=== PATIENT | female | born 1975 | race Caucasian/White ===

== ENCOUNTER 2018-11-19 21:53 | Inpatient (IN) | payer OTHER ==
[2018-11-19] MEDS ORDERED: HYDROmorphone 0.5 MG/0.5 ML Syringe IVPUSH ONE (22:37)
[2018-11-19] MEDS ORDERED: Ondansetron 4 MG/2 ML SDV IVPUSH ONE (22:37)
[2018-11-19] MEDS ORDERED: Sodium Chloride 0.9% 1,000 ML IV SCH (22:45)
--- NOTE | 2018-11-19 22:54 | EDM.PDOC ---
ED HPI GENERAL MEDICAL PROBLEM - General Chief Complaint: Abdominal Pain Stated Complaint: BOWELS Time Seen by Provider: 11/19/18 22:25 Source of Information: Reports: Patient, Family History Limitations: Reports: No Limitations - History of Present Illness INITIAL COMMENTS - FREE TEXT/NARRATIVE: 43-year-old female with a history of gastric bypass, several bowel obstructions the last one resulted in surgery last year. She had been doing well but over the past 3 days she's redeveloped symptoms similar to a bowel obstruction. She has less pain in the morning but as the day goes on she becomes bloated, increased pain and discomfort. Also persistent nausea, no fevers or chills. Onset: Gradual Duration: Day(s): (Over 3 days) Location: Reports: Abdomen abd pain Pain Score (Numeric/FACES): 6 - Related Data Allergies Allergy/AdvReac Type Severity Reaction Status Date / Time nitrofurantoin Allergy Intermediate Rash Verified 11/14/14 18:31 [From Macrobid] nitrofurantoin Allergy Intermediate Rash Verified 11/14/14 18:31 macrocrystalline [From Macrobid] celecoxib [From Celebrex] Allergy Facial Verified 11/19/18 22:19 Swelling gabapentin Allergy Facial Verified 11/19/18 22:19 Swelling Home Meds: Home Meds Calcium Citrate/Vitamin D3 [Calcium Citrate + D] 1 tab PO DAILY 10/29/13 [ History] Ferrous Sulfate [Iron] 325 mg PO DAILY 10/29/13 [History] Folic Acid 1 mg PO DAILY 10/29/13 [History] Multivitamin [Chewable Multi Vitamin] 1 tab.chew PO DAILY 10/29/13 [History] Magnesium Oxide 400 mg PO BID #60 tab 11/17/14 [Rx] Pantoprazole [ProTONIX] 40 mg PO BEDTIME #90 tab.cr 11/17/14 [Rx] Past Medical History HEENT History: Reports: None Gastrointestinal History: Reports: Bowel Obstruction, GERD 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: , 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 (See Below) 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: x2 - Infectious Disease History Infectious Disease History: Reports: Chicken Pox - Past Surgical History HEENT Surgical History: Reports: LASIK GI Surgical History: Reports: Bariatric Procedure, Cholecystectomy, EGD, Hernia Repair/Other, Lysis of Adhesions, Small Bowel Female Surgical History: Reports: Section, Tubal Ligation Social & Family History - Family History Family Medical History: Noncontributory - Tobacco Use Smoking Status *Q: Never Smoker - Caffeine Use Caffeine Use: Reports: Coffee - Recreational Drug Use Recreational Drug Use: No ED ROS GENERAL - Review of Systems Review Of Systems: See Below Constitutional: Denies: Fever, Chills HEENT: Reports: No Symptoms Respiratory: Reports: No Symptoms Cardiovascular: Reports: No Symptoms GI/Abdominal: Reports: Abdominal Pain, Nausea. Denies: Diarrhea, Vomiting : Reports: No Symptoms Skin: Reports: No Symptoms Neurological: Reports: No Symptoms ED EXAM, GI/ABD - Physical Exam Exam: See Below Exam Limited By: No Limitations General Appearance: Alert, Mild Distress (Looks fairly uncomfortable) Eyes: Right: Normal Appearance (No jaundice) Respiratory/Chest: No Respiratory Distress Cardiovascular: Regular Rate, Rhythm GI/Abdominal Exam: Normal Bowel Sounds, Soft, Tender (Very tender to palpation along the left abdomen especially the left upper quadrant with mild guarding) Neurological: Alert, Oriented Psychiatric: Normal Affect, Normal Mood Skin Exam: Warm, Dry Course - Vital Signs Last Recorded V/S: Last Vital Signs Temp 97.2 F 11/20/18 00:30 Pulse 75 11/20/18 02:00 Resp 14 11/20/18 02:00 BP 110/63 11/20/18 02:00 Pulse Ox 95 11/20/18 02:00 - Orders/Labs/Meds Orders: Active Orders 24 hr Category Date Time Status Iopamidol [Isovue-300 (61%)] Med 11/19/18 23:03 Active 100 ml IV . DIRECTED PRN Sodium Chloride 0.9% [Normal Saline] 1,000 ml Med 11/19/18 22:45 Active IV ASDIRECTED Sodium Chloride 0.9% [Normal Saline] 79 ml Med 11/19/18 23:15 Active IV ASDIRECTED Medication Orders Hydromorphone HCl (Dilaudid) 0.5 mg IVPUSH Q1H PRN PRN Reason: Pain Last Admin: 11/20/18 02:18 Dose: 0.5 mg Admin: 11/20/18 00:55 Dose: 0.5 mg Sodium Chloride (Normal Saline) 1,000 mls @ 500 mls/hr IV ASDIRECTED ELVIS Last Admin: 11/19/18 22:46 Dose: 500 mls/hr Sodium Chloride (Normal Saline) 79 mls @ 3.5 mls/sec IV ASDIRECTED ELVIS Last Admin: 11/19/18 23:12 Dose: 3.5 mls/sec Dextrose/Lactated Ringer's (Dextrose 5%-Lactated Ringers) 1,000 mls @ 150 mls/ hr IV ASDIRECTED ELVIS Last Admin: 11/20/18 01:05 Dose: 150 mls/hr Infusion: 11/20/18 01:05 Dose: 150 mls/hr Admin: 11/20/18 01:03 Dose: 150 mls/hr Iopamidol (Isovue-300 (61%)) 100 ml IV . DIRECTED PRN PRN Reason: RADIOLOGY EXAM Stop: 11/20/18 23:04 Last Admin: 11/19/18 23:13 Dose: 100 ml Ondansetron HCl (Zofran) 4 mg IVPUSH Q4H PRN PRN Reason: Nausea/Vomiting Last Admin: 11/20/18 02:55 Dose: 4 mg Labs: Laboratory Tests 11/19/18 11/19/18 Range/Units 22:37 22:37 WBC 7.9 (4.5-11.0) K/uL RBC 4.00 (3.30-5.50) M/uL Hgb 12.6 D (12.0-15.0) g/dL Hct 37.9 (36.0-48.0) % MCV 95 (80-98) fL MCH 32 H (27-31) pg MCHC 33 (32-36) % Plt Count 256 (150-400) K/uL Neut % (Auto) 65 (36-66) % Lymph % (Auto) 26 (24-44) % [place] % (Auto) 8 H (2-6) % Eos % (Auto) 1 L (2-4) % Baso % (Auto) 1 (0-1) % Sodium 141 (140-148) mmol/L Potassium 3.5 L (3.6-5.2) mmol/L Chloride 104 (100-108) mmol/L Carbon Dioxide 28 (21-32) mmol/L Anion Gap 12.5 (5.0-14.0) mmol/L BUN 15 D (7-18) mg/dL Creatinine 0.6 (0.6-1.0) mg/dL Est Cr Clr Drug Dosing 105.47 mL/min Estimated GFR (MDRD) > 60 (>60) Glucose 88 (74-106) mg/dL Calcium 9.2 (8.5-10.1) mg/dL Lipase 112 (73-393) U/L Meds: Medications Generic Name Dose Route Start Last Admin Trade Name Ade PRN Reason Stop Dose Admin Hydromorphone HCl 0.5 mg 11/19/18 23:58 11/20/18 02:18 Dilaudid IVPUSH 0.5 mg Q1H PRN Administration Pain Sodium Chloride 1,000 mls @ 500 mls/hr 11/19/18 22:45 11/19/18 22:46 Normal Saline IV 500 mls/hr ASDIRECTED ELVIS Administration Sodium Chloride 79 mls @ 3.5 mls/sec 11/19/18 23:15 11/19/18 23:12 Normal Saline IV 3.5 mls/sec ASDIRECTED ELVIS Administration Dextrose/Lactated Ringer's 1,000 mls @ 150 mls/hr 11/19/18 23:45 11/20/18 01: 05 Dextrose 5%-Lactated Ringers IV 150 mls/hr ASDIRECTED ELVIS Administration Iopamidol 100 ml 11/19/18 23:03 11/19/18 23:13 Isovue-300 (61%) IV 11/20/18 23:04 100 ml . DIRECTED PRN Administration RADIOLOGY EXAM Ondansetron HCl 4 mg 11/19/18 23:58 11/20/18 02:55 Zofran IVPUSH 4 mg Q4H PRN Administration Nausea/Vomiting Discontinued Medications Generic Name Dose Route Start Last Admin Trade Name Ade PRN Reason Stop Dose Admin Hydromorphone HCl 0.5 mg 11/19/18 22:37 11/19/18 22:46 Dilaudid IVPUSH 11/19/18 22:38 0.5 mg ONETIME ONE Administration Ondansetron HCl 4 mg 11/19/18 22:37 11/19/18 22:46 Zofran IVPUSH 11/19/18 22:38 4 mg ONETIME ONE Administration - Re-Assessments/Exams Free Text/Narrative Re-Assessment/Exam: 11/19/18 22:53 CBC BMP and lipase were obtained, IV was started and the patient was hydrated with normal saline, given 0.5 mg of Dilaudid and 4 mg of IV Zofran. A CT the abdomen and pelvis with IV contrast will be obtained. 11/19/18 23:33 CBC is normal, chemistries are normal other than a potassium of 3.5. 11/19/18 23:52 CT showed no evidence of acute obstruction or other source of pain. Findings were discussed with Dr. Perez, her symptoms are typical of a partial bowel obstruction so she will be admitted for pain control tonight and assessed in the morning. Departure - Departure Time of Disposition: 00:07 Disposition: Admitted As Inpatient 67 Condition: Fair Clinical Impression: Abdominal pain Qualifiers: Abdominal location: left upper quadrant Qualified Code(s): R10.12 - Left upper quadrant pain - Discharge Information - My Orders Last 24 Hours: My Active Orders 11/19/18 22:45 Sodium Chloride 0.9% [Normal Saline] 1,000 ml IV ASDIRECTED 11/19/18 23:03 Iopamidol [Isovue-300 (61%)] 100 ml IV . DIRECTED PRN 11/19/18 23:15 Sodium Chloride 0.9% [Normal Saline] 79 ml IV ASDIRECTED - Assessment/Plan Last 24 Hours: My Active Orders 11/19/18 22:45 Sodium Chloride 0.9% [Normal Saline] 1,000 ml IV ASDIRECTED 11/19/18 23:03 Iopamidol [Isovue-300 (61%)] 100 ml IV . DIRECTED PRN 11/19/18 23:15 Sodium Chloride 0.9% [Normal Saline] 79 ml IV ASDIRECTED
[2018-11-19] MEDS ORDERED: Iopamidol 612 MG/ML 100 ML Bottle IV PRN (23:03)
--- NOTE | 2018-11-19 23:44 | CRLCT ---
INDICATION: Abdominal pain. CT ABDOMEN AND PELVIS WITH CONTRAST TECHNIQUE: Multidetector CT imaging was performed through the abdomen and pelvis following intravenous contrast administration using 100 mL Isovue 300. Coronal and sagittal reconstructions were generated. COMPARISON: 11/14/2014 CT abdomen and pelvis. FINDINGS: Lower chest: Lung bases are clear. Liver: Within normal limits. Gallbladder and bile ducts: Status post cholecystectomy, as before. Unchanged mild dilation of the biliary tree consistent with post cholecystectomy reservoir effect. Pancreas: Unremarkable. Spleen: Normal. Adrenals: No nodules or masses. Kidneys, ureters, and urinary bladder: No renal masses or hydronephrosis. No bladder mass or definite wall thickening. Gastrointestinal tract and abdominal wall: Status post Baljit-en-Y gastric bypass, as before. Normal caliber bowel without wall thickening. The appendix is normal. Postoperative changes seen in the anterior abdominal wall in the epigastric region. Mild increase in size of small wide-mouthed periumbilical ventral hernia now containing a small portion of the bowel without strangulation or obstruction. Vascular structures: Normal for age. Peritoneum: No free air, abscess, or significant free fluid. Lymph nodes: No pathologically enlarged nodes identified. Reproductive organs: Dominant follicle within the right ovary. No pelvic masses. Bones: Normal for age. IMPRESSION: 1. No acute abnormality identified. No definite cause for the patient`s symptoms is demonstrated. 2. Nonacute findings as detailed above. ТАТЬЯНА SANCHEZ MD [employer] Dictated by Dae Sanchez MD @ 11/19/2018 11:41:45 PM Dictated by: Dae Sanchez MD @ 11/19/2018 23:44:21 (Electronically Signed)
[2018-11-20] MEDS: HYDROmorphone 0.5 MG/0.5 ML Syringe IVPUSH PRN ×3 (00:55→08:52)
[2018-11-20] MEDS: Dextrose 5%-Lactated Ringers 1,000 ML IV SCH ×4 (01:03→21:27)
[2018-11-20] MEDS: Ondansetron 4 MG/2 ML SDV IVPUSH PRN ×2 (02:55→07:03)
[2018-11-20] MEDS ORDERED: Morphine PF 150 MG/30 ML PCA Syringe IV PRN ×2 (07:04→16:47)
[2018-11-20] MEDS ORDERED: Naloxone 0.4 MG/ML SDV IV PRN (07:04)
[2018-11-20] MEDS ORDERED: Meropenem 500 MG SDV ONE (07:45)
[2018-11-20] MEDS ORDERED: Metoclopramide 10 MG/2 ML SDV IVPUSH SCH (08:00)
[2018-11-20] MEDS ORDERED: cefOXitin 2 GM in Sodium Chloride 0.9% 50 ML IV ONE (10:00)
[2018-11-20] MEDS ORDERED: Ropivacaine 40 ML, Dexamethasone 8 MG, EPINEPHrine 0.4 MG, Sodium Chloride 0.9% 37.6 ML NERVRT SCH ×4 (10:00)
[2018-11-20] MEDS ORDERED: fentaNYL 250 MCG/5 ML SDV ONE ×2 (10:01→13:11)
[2018-11-20] MEDS ORDERED: Ondansetron 4 MG/2 ML SDV ONE (10:02)
[2018-11-20] MEDS ORDERED: Dexamethasone 4 MG/ML SDV ONE (10:02)
[2018-11-20] MEDS ORDERED: Neostigmine Methylsulfate 1 MG/ML 5 ML Syringe ONE (10:02)
[2018-11-20] MEDS ORDERED: Glycopyrrolate 0.2 MG/ML 5 ML MDV ONE (10:02)
[2018-11-20] MEDS ORDERED: Propofol 200 MG/20 ML SDV ONE (10:02)
[2018-11-20] MEDS ORDERED: Succinylcholine 200 MG/10 ML MDV ONE (10:02)
[2018-11-20] MEDS ORDERED: Rocuronium 50 MG/5 ML Vial ONE ×2 (10:02→13:10)
[2018-11-20] MEDS ORDERED: Lactated Ringers 1,000 ML ONE (13:12)
[2018-11-20] MEDS ORDERED: diphenhydrAMINE 50 MG/ML SDV IVPUSH PRN (14:47)
[2018-11-20] MEDS ORDERED: Labetalol 20 MG/4 ML Syringe IVPUSH PRN (14:47)
[2018-11-20] MEDS ORDERED: Acetaminophen 1,000 MG in Premix Bag 1 BAG IV ONE (15:00)
[2018-11-20] MEDS: Metoclopramide 10 MG/2 ML SDV IVPUSH PRN ×2 (15:31→22:51)
[2018-11-20] MEDS: hydrOXYzine HCl 100 MG/2 ML SDV IM PRN (15:39)
[2018-11-20] MEDS ORDERED: Meperidine PF 100 MG/ML Syringe IM ONE (15:59)
[2018-11-20] MEDS ORDERED: MVI, Adult with Vitamin K 10 ML, Thiamine 100 MG, Chromium/Copper/Mang/Selen/Zn 1 ML in... IV SCH ×4 (16:00)
[2018-11-20] MEDS ORDERED: Pantoprazole 40 MG Vial IVPUSH SCH (16:00)
[2018-11-20] MEDS: cefOXitin 2 GM in Sodium Chloride 0.9% 50 ML IV SCH ×2 (17:00→23:09)
[2018-11-20] MEDS: Acetaminophen 325 MG Tab PO SCH (21:23)
[2018-11-21] MEDS: Acetaminophen 325 MG Tab PO SCH ×4 (02:45→20:19)
[2018-11-21] MEDS: Dextrose 5%-Lactated Ringers 1,000 ML IV SCH (03:15)
[2018-11-21] MEDS ORDERED: Iohexol 647 MG/ML 50 ML SDV IVPUSH PRN (04:11)
[2018-11-21] MEDS: Metoclopramide 10 MG/2 ML SDV IVPUSH PRN (04:57)
[2018-11-21] MEDS: cefOXitin 2 GM in Sodium Chloride 0.9% 50 ML IV SCH ×3 (05:00→18:28)
--- NOTE | 2018-11-21 05:29 | CRLCR ---
INDICATION: Status post revision of Baljit-en-Y. COMPARISON: CT of the abdomen and pelvis from 11/19/2018 FINDINGS: Two erect films of the abdomen were obtained, the 1st at 0420 hours and the 2nd at 0433 hours. There are multiple surgical skin rhianna at the midline of the abdomen and upper pelvis. There is no distention of the bowel to suggest obstruction or ileus. Oral contrast has been administered on the 1st image. That is collected in the small bowel loop in the left upper quadrant. On the 2nd image, contrast has passed through the nondistended small-bowel loops in the left upper quadrant to reach the superior upper pelvis. None of the small bowel loops are dilated. There is no sign of any extravasation of contrast into the peritoneal cavity. The osseous structures are normal in appearance for the patient`s age. The lung bases are clear. IMPRESSION: Prompt passage of contrast through the nondistended proximal and mid small bowel, reaching the upper pelvis in just 13 minutes. No sign of extravasation of contrast from the area of surgery in the upper abdomen. No sign of obstruction or ileus. Dictated by Abhishek Purdy MD @ Nov 21 2018 5:25AM Signed by Dr. Abhishek Purdy @ Nov 21 2018 5:28AM
[2018-11-21] MEDS: hydrOXYzine HCl 100 MG/2 ML SDV IM PRN (05:47)
[2018-11-21] MEDS ORDERED: Dextrose 5%-Lactated Ringers 1,000 ML IV SCH (07:15)
[2018-11-21] MEDS: Magnesium Sulfate/Water 2 GM in Premix Bag 1 BAG IV SCH ×3 (09:20→19:42)
[2018-11-21] MEDS: Docusate Sodium 100 MG Cap PO SCH ×2 (09:25→20:19)
--- NOTE | 2018-11-21 10:57 | PN ---
DATE OF SERVICE: 11/21/2018 The patient has been afebrile with stable vital signs. Oxygenation appears to be fairly good on limited nasal cannula. Urine output is also quite high. Her upper GI x-ray looked good with things flowing through both of the new anastomoses satisfactorily. Otherwise, in looking at her labs, the patient was noted to have low ferritin at 19. We will give her some ferric gluconate over the next 24 hours. Her magnesium is also low, and we will begin supplementing that over the next 72 hours. Otherwise, we will go over to a step-2 diet today. She is in the ICU as result of med overflow, so she may go upstairs today. Given this, we will discontinue the tele and Doss catheter, and leave her on pulse ox, as she will continue to need the BANDER HAND for another day or two. Presley Perez MD /[id number]
[2018-11-21] MEDS: Sodium Ferric Gluconate Cmplex 250 MG in Sodium Chloride 0.9% 100 ML IV SCH (11:40)
[2018-11-21] MEDS ORDERED: methylPREDNISolone Sodium Succinate 40 MG/1 ML SDV IVPUSH STA (13:55)
[2018-11-21] MEDS ORDERED: Famotidine 20 MG/2 ML SDV IVPUSH STA (13:55)
[2018-11-21] MEDS ORDERED: MVI, Adult with Vitamin K 10 ML, Thiamine 100 MG, Chromium/Copper/Mang/Selen/Zn 1 ML in... IV SCH ×4 (16:00)
[2018-11-21] MEDS: Pantoprazole 40 MG Delayed-Release Granules 1 Packet PO SCH (16:31)
[2018-11-21] MEDS: diphenhydrAMINE 50 MG/ML SDV IVPUSH PRN (22:38)
[2018-11-22] MEDS: cefOXitin 2 GM in Sodium Chloride 0.9% 50 ML IV SCH ×3 (00:34→11:10)
[2018-11-22] MEDS: Magnesium Sulfate/Water 2 GM in Premix Bag 1 BAG IV SCH ×3 (01:42→14:08)
[2018-11-22] MEDS: diphenhydrAMINE 50 MG/ML SDV IVPUSH PRN ×2 (02:22→11:52)
[2018-11-22] MEDS: Acetaminophen 325 MG Tab PO SCH ×4 (02:22→20:37)
[2018-11-22] MEDS ORDERED: Magnesium Hydroxide 400 MG/5 ML Susp 30 ML Cup PO ONE (09:00)
[2018-11-22] MEDS ORDERED: Cyanocobalamin (Vitamin B12) 1,000 MCG/ML SDV IM ONE (09:00)
[2018-11-22] MEDS: Docusate Sodium 100 MG Cap PO SCH ×2 (09:08→20:38)
[2018-11-22] MEDS ORDERED: Famotidine 20 MG Tab PO ONE (10:00)
[2018-11-22] MEDS ORDERED: methylPREDNISolone Sod Succ 80 MG in Dextrose 5% in Water 100 ML IV ONE ×2 (10:00)
[2018-11-22] MEDS ORDERED: methylPREDNISolone Sodium Succinate 125 MG/2 ML SDV IVPUSH ONE (10:00)
[2018-11-22] MEDS: oxyCODONE 5 MG Tab PO PRN ×4 (10:01→22:28)
[2018-11-22] MEDS: Sodium Ferric Gluconate Cmplex 250 MG in Sodium Chloride 0.9% 100 ML IV SCH (12:05)
[2018-11-22] MEDS: Pantoprazole 40 MG Delayed-Release Granules 1 Packet PO SCH (15:24)
--- NOTE | 2018-11-22 15:41 | PCM.SURGPN ---
- General Info Date of Service: 11/22/18 Date of Surgery/Procedure: 11/21/18 POD#: 1 Post-Op Diagnosis: Post Operative Diagnosis: Adhesive small bowel obstruction; separate small bowel stricture. Incarcerated incisional hernia Functional Status: Reports: Pain Controlled, Tolerating Diet, Ambulating, Urinating (Output 900 mL) - Review of Systems Systems Review Comment:: 43 YO female Ally Singh is post op day 1 from a small bowel obstruction. Patient is afebrile with stable vital signs. A concern was that the patient was given iron infusion for her anemia and she became very itchy. To prevent this, when she needs another infusion they will give her Solu-Medrol 80 mg IV push and Pepcid 40 mg PO one time. The patient's pain is well controlled and will transition to Oxycodone 5-10 mg PO every 4 hours PRN for pain. The patient is urinating and passing gas but has not had a BM. Milk of Magnesia will be given today. The patient does not have any other questions at this time. - Patient Data Vitals - Most Recent: Last Vital Signs Temp 36.3 C 11/22/18 11:00 Pulse 76 11/22/18 11:00 Resp 16 11/22/18 15:00 BP 90/44 L 11/22/18 11:00 Pulse Ox 93 L 11/22/18 11:00 Weight - Most Recent: 80.785 kg I&O - Last 24 Hours: Intake & Output 11/22/18 11/22/18 11/22/18 06:59 14:59 22:59 Intake Total 1300 Output Total 1100 400 500 Balance -1100 900 -500 Med Orders - Current: Current Medications Acetaminophen (Tylenol) 650 mg PO Q6H ELVIS Last Admin: 11/22/18 15:25 Dose: 650 mg Diphenhydramine HCl (Benadryl) 25 - 50 mg IVPUSH Q4H PRN PRN Reason: Itching Last Admin: 11/22/18 11:52 Dose: 50 mg Docusate Sodium (Colace) 100 mg PO BID ELVIS Last Admin: 11/22/18 09:08 Dose: 100 mg Hydroxyzine HCl (Vistaril) 100 mg IM Q4H PRN PRN Reason: pain Last Admin: 11/21/18 05:47 Dose: 100 mg Magnesium Sulfate 2 gm/ Premix 50 mls @ 25 mls/hr IV Q6H [facility] Stop: 11/24/18 03:59 Last Admin: 11/22/18 14:08 Dose: 25 mls/hr Labetalol HCl (Normodyne) 5 mg IVPUSH Q5M PRN PRN Reason: SBP over 160 OR DBP over 95 Metoclopramide HCl (Reglan) 10 mg IVPUSH Q6H PRN PRN Reason: NAUSEA NOT CONTROL BY ZOFRAN Last Admin: 11/21/18 04:57 Dose: 10 mg Ondansetron HCl (Zofran) 4 mg IVPUSH Q4H PRN PRN Reason: Nausea/Vomiting Last Admin: 11/20/18 07:03 Dose: 4 mg Oxycodone HCl (Oxycodone) 5 - 10 mg PO Q4H PRN PRN Reason: Pain Last Admin: 11/22/18 14:15 Dose: 10 mg Pantoprazole Sodium (Protonix Granules) 40 mg PO Q24H [facility] Last Admin: 11/22/18 15:24 Dose: 40 mg Discontinued Medications Ropivacaine 40 ml/Dexamethasone 8 mg/Epinephrine HCl 0.4 mg/ Sodium Chloride 37.6 ml 0 ml NERVRT ASDIRECTED [facility] Last Admin: 11/20/18 12:27 Dose: 80 syringe Cyanocobalamin (Vitamin B12) 1,000 mcg IM ONETIME ONE Stop: 11/22/18 09:01 Last Admin: 11/22/18 09:08 Dose: 1,000 mcg Dexamethasone (Dexamethasone) Confirm Administered Dose 4 mg .ROUTE .STK-MED ONE Stop: 11/20/18 10:03 Diphenhydramine HCl (Benadryl) 50 mg IVPUSH Q4H PRN PRN Reason: ITCHING Last Admin: 11/20/18 16:55 Dose: 50 mg Famotidine (Pepcid) 20 mg IVPUSH ONETIME STA Stop: 11/21/18 13:56 Last Admin: 11/21/18 14:05 Dose: 20 mg Famotidine (Pepcid) 40 mg PO ONETIME ONE Stop: 11/22/18 10:01 Last Admin: 11/22/18 11:52 Dose: 40 mg Fentanyl (Sublimaze) Confirm Administered Dose 250 mcg .ROUTE .STK-MED ONE Stop: 11/20/18 10:02 Fentanyl (Sublimaze) Confirm Administered Dose 250 mcg .ROUTE .STK-MED ONE Stop: 11/20/18 13:12 Glycopyrrolate (Robinul) Confirm Administered Dose 1 mg .ROUTE .STK-MED ONE Stop: 11/20/18 10:03 Hydromorphone HCl (Dilaudid) 0.5 mg IVPUSH ONETIME ONE Stop: 11/19/18 22:38 Last Admin: 11/19/18 22:46 Dose: 0.5 mg Hydromorphone HCl (Dilaudid) 0.5 mg IVPUSH Q1H PRN PRN Reason: Pain Last Admin: 11/20/18 08:52 Dose: 0.5 mg Sodium Chloride (Normal Saline) 1,000 mls @ 500 mls/hr IV ASDIRECTED [facility] Last Admin: 11/19/18 22:46 Dose: 500 mls/hr Sodium Chloride (Normal Saline) 79 mls @ [facility].5 mls[facility] Admin: 11/19/18 23:12 Dose: 3.5 mls/sec Dextrose/Lactated Ringer's (Dextrose 5%-Lactated Ringers) 1,000 mls @ 150 [facility]ls[facility] Admin: 11/20/18 07:42 Dose: 150 mls/hr Cefoxitin Sodium 2 gm/ Sodium (Chloride) 50 mls @ 100 mls/hr IV ONCALL ONE Stop: 11/20/18 10:29 Last Admin: 11/20/18 11:54 Dose: 100 mls/hr Lactated Ringer's (Ringers, Lactated) Confirm Administered Dose 1,000 mls @ as directed .ROUTE .STK-MED ONE Stop: 11/20/18 13:13 Acetaminophen 1,000 mg/ Premix 100 mls @ 400 mls/hr IV NOW ONE Stop: 11/20/18 15:14 Last Admin: 11/20/18 14:45 Dose: 400 mls/hr Dextrose/Lactated Ringer's (Dextrose 5%-Lactated Ringers) 1,000 mls @ 175 mls/ [facility] Last Admin: 11/21/18 03:15 Dose: 175 mls/hr Multivitamins/Minerals 10 ml/Thiamine HCl 100 mg/ Chromium/Copper/Manganese/ Seleni/Zn 1 ml/ Dextrose/Lactated Ringer's 1,012 mls @ 175 mls/hr IV DAILY@ 1600 [facility] Last Admin: 11/20/18 15:50 Dose: 175 mls/hr Cefoxitin Sodium 2 gm/ Sodium (Chloride) 50 mls @ 100 mls/hr IV Q6H [facility] Stop: 11/22/18 12:29 Last Admin: 11/22/18 11:10 Dose: 100 mls/hr Dextrose/Lactated Ringer's (Dextrose 5%-Lactated Ringers) 1,000 mls @ 80 mls/ hr IV ASDIRECTED [facility] Multivitamins/Minerals 10 ml/Thiamine HCl 100 mg/ Chromium/Copper/Manganese/ Seleni/Zn 1 ml/ Dextrose/Lactated Ringer's 1,012 mls @ 80 mls/hr IV DAILY@1600 [facility] Last Admin: 11/21/18 16:32 Dose: 80 mls/hr Ferric Sodium Gluconate Complex 250 mg/ Sodium Chloride 120 mls @ 60 mls/hr IV Q24H [facility] Stop: 11/22/18 11:59 Last Admin: 11/22/18 12:05 Dose: 60 mls/hr Iohexol (Omnipaque-300) 50 ml IVPUSH . DIRECTED PRN PRN Reason: RADIOLOGY EXAM Stop: 11/22/18 04:12 Last Admin: 11/21/18 04:24 Dose: 50 ml Iopamidol (Isovue-300 (61%)) 100 ml IV . DIRECTED PRN PRN Reason: RADIOLOGY EXAM Stop: 11/20/18 23:04 Last Admin: 11/19/18 23:13 Dose: 100 ml Magnesium Hydroxide (Milk Of Magnesia) 30 ml PO ONETIME ONE Stop: 11/22/18 09:01 Last Admin: 11/22/18 09:08 Dose: 30 ml Meperidine HCl (Demerol) 100 mg IM ONETIME ONE Stop: 11/20/18 16:00 Last Admin: 11/20/18 16:26 Dose: 100 mg Meropenem (Merrem) Confirm Administered Dose 500 mg .ROUTE .STK-MED ONE Stop: 11/20/18 07:46 Last Admin: 11/20/18 12:36 Dose: 500 mg Methylprednisolone Sodium Succinate (Solu-Medrol) 80 mg IVPUSH ONETIME STA Stop: 11/21/18 13:56 Last Admin: 11/21/18 14:10 Dose: 80 mg Methylprednisolone Sodium Succinate (Solu-Medrol) 80 mg IVPUSH ONETIME ONE Stop: 11/22/18 10:01 Last Admin: 11/22/18 11:54 Dose: 80 mg Metoclopramide HCl (Reglan) 10 mg IVPUSH Q6H [facility] Last Admin: 11/20/18 08:02 Dose: 10 mg Morphine Sulfate (Morphine [employer] Service [employer]ic 150 Mg In 30 Ml) 0 mg IV ASDIRECTED PRN; Protocol PRN Reason: Pain Last Admin: 11/20/18 14:00 Dose: 1 mg Morphine Sulfate (Morphine [employer]ault Service Mechanic 150 Mg In 30 Ml) 0 mg IV ASDIRECTED PRN; Protocol PRN Reason: Pain Naloxone HCl (Narcan) 0.1 mg IV ASDIRECTED PRN PRN Reason: DECREASED RESPIRATORY RATE Neostigmine Methylsulfate (Neostigmine) Confirm Administered Dose 5 mg .ROUTE .STK-MED ONE Stop: 11/20/18 10:03 Ondansetron HCl (Zofran) 4 mg IVPUSH ONETIME ONE Stop: 11/19/18 22:38 Last Admin: 11/19/18 22:46 Dose: 4 mg Ondansetron HCl (Zofran) Confirm Administered Dose 4 mg .ROUTE .STK-MED ONE Stop: 11/20/18 10:03 Pantoprazole Sodium (Protonix Iv) 40 mg IVPUSH Q24H [facility] Last Admin: 11/20/18 15:46 Dose: 40 mg Propofol (Diprivan 20 Ml) Confirm Administered Dose 200 mg .ROUTE .STK-MED ONE Stop: 11/20/18 10:03 Rocuronium [place] (Zemuron) Confirm Administered Dose 50 mg .ROUTE .STK-MED ONE Stop: 11/20/18 10:03 Rocuronium [place] (Zemuron) Confirm Administered Dose 50 mg .ROUTE .STK-MED ONE Stop: 11/20/18 13:11 Succinylcholine Chloride (Quelicin) Confirm Administered Dose 200 mg .ROUTE .STK -MED ONE Stop: 11/20/18 10:03 - Exam Quality Assessment: DVT Prophylaxis General: Alert, Oriented Neck: Supple Lungs: Clear to Auscultation, Normal Respiratory Effort Cardiovascular: Regular Rate, Regular Rhythm Extremities: No Pedal Edema Neurological: No New Focal Deficit Psy/Mental Status: Normal Affect, Normal Mood - Problem List Review Problem List Initiated/Reviewed/Updated: Yes - My Orders Last 24 Hours: Active Orders 24 hr Category Date Time Status Communication Order [RC] ASDIRECTED Care 11/22/18 06:00 Active May Shower [RC] ASDIRECTED Care 11/22/18 08:26 Active Pantoprazole [ProTONIX Granules] Med 11/21/18 16:00 Active 40 mg PO Q24H oxyCODONE Med 11/22/18 08:25 Active 5 - 10 mg PO Q4H PRN Convert IV to Saline Lock [OM.PC] Routine Oth 11/22/18 13:32 Ordered Medication Orders Acetaminophen (Tylenol) 650 mg PO Q6H [facility] Last Admin: 11/22/18 15:25 Dose: 650 mg Admin: 11/22/18 09:09 Dose: 650 mg Admin: 11/22/18 02:22 Dose: 650 mg Admin: 11/21/18 20:19 Dose: 650 mg Admin: 11/21/18 16:30 Dose: 650 mg Admin: 11/21/18 09:25 Dose: 650 mg Admin: 11/21/18 02:45 Dose: 650 mg Admin: 11/20/18 21:23 Dose: 650 mg Diphenhydramine HCl (Benadryl) 25 - 50 mg IVPUSH Q4H PRN PRN Reason: Itching Last Admin: 11/22/18 11:52 Dose: 50 mg Admin: 11/22/18 02:22 Dose: 50 mg Admin: 11/21/18 22:38 Dose: 50 mg Docusate Sodium (Colace) 100 mg PO BID [facility]VIS Last Admin: 11/22/18 09:08 Dose: 100 mg Admin: 11/21/18 20:19 Dose: 100 mg Admin: 11/21/18 09:25 Dose: 100 mg Hydroxyzine HCl (Vistaril) 100 mg IM Q4H PRN PRN Reason: pain Last Admin: 11/21/18 05:47 Dose: 100 mg Admin: 11/20/18 15:39 Dose: 100 mg Magnesium Sulfate 2 gm/ Premix 50 mls @ 25 mls/hr IV Q6H [facility] Stop: 11/24/18 03:59 Last Admin: 11/22/18 14:08 Dose: 25 mls/hr Infusion: 11/22/18 11:03 Dose: 25 mls/hr Admin: 11/22/18 09:03 Dose: 25 mls/hr Infusion: 11/22/18 03:42 Dose: 25 mls/hr Admin: 11/22/18 01:42 Dose: 25 mls/hr Infusion: 11/21/18 21:42 Dose: 25 mls/hr Admin: 11/21/18 19:42 Dose: 25 mls/hr Infusion: 11/21/18 16:13 Dose: 25 mls/hr Admin: 11/21/18 14:13 Dose: 25 mls/hr Infusion: 11/21/18 11:20 Dose: 25 mls/hr Admin: 11/21/18 09:20 Dose: 25 mls/hr Labetalol HCl (Normodyne) 5 mg IVPUSH Q5M PRN PRN Reason: SBP over 160 OR DBP over 95 Metoclopramide HCl (Reglan) 10 mg IVPUSH Q6H PRN PRN Reason: NAUSEA NOT CONTROL BY ZOFRAN Last Admin: 11/21/18 04:57 Dose: 10 mg Admin: 11/20/18 22:51 Dose: 10 mg Admin: 11/20/18 15:31 Dose: 10 mg Ondansetron HCl (Zofran) 4 mg IVPUSH Q4H PRN PRN Reason: Nausea/Vomiting Last Admin: 11/20/18 07:03 Dose: 4 mg Admin: 11/20/18 02:55 Dose: 4 mg Oxycodone HCl (Oxycodone) 5 - 10 mg PO Q4H PRN PRN Reason: Pain Last Admin: 11/22/18 14:15 Dose: 10 mg Admin: 11/22/18 10:01 Dose: 10 mg Pantoprazole Sodium (Protonix Granules) 40 mg PO Q24H [facility] Last Admin: 11/22/18 15:24 Dose: 40 mg Admin: 11/21/18 16:31 Dose: 40 mg - Assessment Assessment (Free Text/Narrative):: Assessment: a) Iron deficiency anemia. b) Low ferritin. Operation: Exploratory laparotomy with a) Small bowel resection. b) Small bowel strictureplasty. c) Repair incisional hernia. Wound Classification: II No complications. Estimated Blood Loss: 100 cc Post Operative Diagnosis: Adhesive small bowel obstruction; separate small bowel stricture Incarcerated incisional hernia Surgeon: Presley Perez MD Date of Surgery: 11/21/2018 Assistants: Mendy Espitia PA-C and JON White - Plan Plan (Free Text/Narrative):: 1. SoluMedrol 80 mg IV push one time. 2. Pepcid 40 mg PO one time. 3. Oxycodone 5-10 mg every 4 hours PO PRN for pain. 4. May shower. 5. Milk of Magnesia 30 mL PO one time.
[2018-11-23] MEDS: oxyCODONE 5 MG Tab PO PRN ×2 (01:55→06:17)
[2018-11-23] MEDS: Acetaminophen 325 MG Tab PO SCH ×2 (02:53→08:32)
[2018-11-23 07:25] VITALS: BP 111/61
[2018-11-23] MEDS: Docusate Sodium 100 MG Cap PO SCH (08:32)
--- NOTE | 2018-11-23 14:52 | PCM.DCSUM1 ---
Discharge Summary - Hospital Course Free Text/Narrative:: Admission Diagnosis: Small bowel obstruction Discharge Diagnosis: Small bowel obstruction, incisional hernia Brief History: Admission Diagnosis: Small bowel obstruction on 11/19/18. Operation: Exploratory laparotomy with release of small bowel obstruction and small bowel resection. Incisional hernia repair. Post Op Diagnosis: Small bowel obstruction and incisional hernia. Post Op Day 1: Afebrile with stable vital signs. Good oxygenation. Good urine output. Good upper GI x-ray. Patient was found to have low ferritin and was given ferritin gluconate. Magnesium was also low, supplement was provided. Step II diet started today. In ICU due to med overflow. DC solomon catheter and telemetry. 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 Post Op Day 2: Afebrile with stable vital signs. During the ferritin fluconate transfusion, patient had an allergic reaction. Solu-Medrol and Pepcid given prior to future transfusions. Patient's pain well controlled. Good urination and passing gas. Post Op Day 3: Afebrile with stable vital signs. Nausea is only new symptom which is from oral pain medications. Patient will be discharged with prescription for Zofran for this. - Discharge Data Discharge Date: 11/23/18 Discharge Disposition: Home, Self-Care 01 Condition: Good - Patient Summary/Data Consults: Consultations 11/20/18 17:25 Consult to Dietary [Consult to Fruit Vendor] [CONS] Routine Comment: Physician Instructions: Quantity: - Patient Instructions Diet: Drink 8-10+ Glasses/Day Diet, Other: Step 2 Gastric Bypass Diet until 11/26/18 then Step 3. Activity: As Tolerated, No Lifting Over 10 Pounds Driving: Do Not Drive Showering/Bathing: May Shower Wound/Incision Care: Keep Operative Site/Wound Site Clean and Dry Notify Provider of: Fever, Increased Pain, Nausea and/or Vomiting Other/Special Instructions: Use incentive inspirometer 10 times every hour while awake for 1 week. - Discharge Plan Prescriptions/Med Rec: Ondansetron [Zofran ODT] 4 mg PO Q6H PRN #30 tab.dis PRN Reason: Nausea oxyCODONE 5 - 10 mg PO Q4H PRN #40 tablet PRN Reason: Pain Home Medications: Home Meds Calcium Citrate/Vitamin D3 [Calcium Citrate + D] 1 tab PO DAILY 10/29/13 [ History] Ferrous Sulfate [Iron] 325 mg PO DAILY 10/29/13 [History] Folic Acid 1 mg PO DAILY 10/29/13 [History] Multivitamin [Chewable Multi Vitamin] 1 tab.chew PO DAILY 10/29/13 [History] Magnesium Oxide 400 mg PO BID #60 tab 11/17/14 [Rx] Pantoprazole [ProTONIX] 40 mg PO BEDTIME #90 tab.cr 11/17/14 [Rx] Acetaminophen [Tylenol] 650 mg PO Q6H tablet 11/23/18 [Rx] Docusate Sodium [Colace] 100 mg PO BID cap 11/23/18 [Rx] Ondansetron [Zofran ODT] 4 mg PO Q6H PRN #30 tab.dis 11/23/18 [Rx] oxyCODONE 5 - 10 mg PO Q4H PRN #40 tablet 11/23/18 [Rx] Patient Handouts: Incentive Spirometer, Preventing Constipation After Surgery Referrals: Mendy Espitia PA-C [Physician Card Mounter] - 11/29/18 11:00 am - Discharge Summary/Plan Comment DC Time >30 min.: Yes - General Info Date of Service: 11/23/18 Admission Dx/Problem (Free Text: Small bowel obstruction Functional Status: Reports: Pain Controlled, Tolerating Diet, Ambulating, Urinating, New Symptoms (Minimal nausea due to pain medications. Will be prescribed sublingual Zofran.) - Patient Data Vitals - Most Recent: Last Vital Signs Temp 36.1 C 11/23/18 07:12 Pulse 77 11/23/18 07:12 Resp 16 11/23/18 07:12 BP 111/61 11/23/18 07:12 Pulse Ox 95 11/23/18 07:12 Weight - Most Recent: 80.785 kg I&O - Last 24 hours: Intake & Output 11/22/18 11/23/18 11/23/18 22:59 06:59 14:59 Intake Total 1000 500 Output Total 1850 900 Balance -850 -400 Med Orders - Current: Current Medications Discontinued Medications Acetaminophen (Tylenol) 650 mg PO Q6H ELVIS Last Admin: 11/23/18 08:32 Dose: 650 mg Ropivacaine 40 ml/Dexamethasone 8 mg/Epinephrine HCl 0.4 mg/ Sodium Chloride 37.6 ml 0 ml NERVRT ASDIRECTED [facility] Last Admin: 11/20/18 12:27 Dose: 80 syringe Cyanocobalamin (Vitamin B12) 1,000 mcg IM ONETIME ONE Stop: 11/22/18 09:01 Last Admin: 11/22/18 09:08 Dose: 1,000 mcg Dexamethasone (Dexamethasone) Confirm Administered Dose 4 mg .ROUTE .STK-MED ONE Stop: 11/20/18 10:03 Diphenhydramine HCl (Benadryl) 50 mg IVPUSH Q4H PRN PRN Reason: ITCHING Last Admin: 11/20/18 16:55 Dose: 50 mg Diphenhydramine HCl (Benadryl) 25 - 50 mg IVPUSH Q4H PRN PRN Reason: Itching Last Admin: 11/22/18 11:52 Dose: 50 mg Docusate Sodium (Colace) 100 mg PO BID [facility] Last Admin: 11/23/18 08:32 Dose: 100 mg Famotidine (Pepcid) 20 mg IVPUSH ONETIME STA Stop: 11/21/18 13:56 Last Admin: 11/21/18 14:05 Dose: 20 mg Famotidine (Pepcid) 40 mg PO ONETIME ONE Stop: 11/22/18 10:01 Last Admin: 11/22/18 11:52 Dose: 40 mg Fentanyl (Sublimaze) Confirm Administered Dose 250 mcg .ROUTE .STK-MED ONE Stop: 11/20/18 10:02 Fentanyl (Sublimaze) Confirm Administered Dose 250 mcg .ROUTE .STK-MED ONE Stop: 11/20/18 13:12 Glycopyrrolate (Robinul) Confirm Administered Dose 1 mg .ROUTE .STK-MED ONE Stop: 11/20/18 10:03 Hydromorphone HCl (Dilaudid) 0.5 mg IVPUSH ONETIME ONE Stop: 11/19/18 22:38 Last Admin: 11/19/18 22:46 Dose: 0.5 mg Hydromorphone HCl (Dilaudid) 0.5 mg IVPUSH Q1H PRN PRN Reason: Pain Last Admin: 11/20/18 08:52 Dose: 0.5 mg Hydroxyzine HCl (Vistaril) 100 mg IM Q4H PRN PRN Reason: pain Last Admin: 11/21/18 05:47 Dose: 100 mg Sodium Chloride (Normal Saline) 1,000 mls @ 500 mls/hr IV ASDIRECTED [facility] Last Admin: 11/19/18 22:46 Dose: 500 mls/hr Sodium Chloride (Normal Saline) 79 mls @ 3.5 mls/sec IV ASDIRECTED [facility] Last Admin: 11/19/18 23:12 Dose: 3.5 mls/sec Dextrose/Lactated Ringer's (Dextrose 5%-Lactated Ringers) 1,000 mls @ 150 mls/ hr IV ASDIRECTED [facility] Last Admin: 11/20/18 07:42 Dose: 150 mls/hr Cefoxitin Sodium 2 gm/ Sodium (Chloride) 50 mls @ 100 mls/hr IV ONCALL ONE Stop: 11/20/18 10:29 Last Admin: 11/20/18 11:54 Dose: 100 mls/hr Lactated Ringer's (Ringers, Lactated) Confirm Administered Dose 1,000 mls @ as directed .ROUTE .STK-MED ONE Stop: 11/20/18 13:13 Acetaminophen 1,000 mg/ Premix 100 mls @ 400 mls/hr IV NOW ONE Stop: 11/20/18 15:14 Last Admin: 11/20/18 14:45 Dose: 400 mls/hr Dextrose/Lactated Ringer's (Dextrose 5%-Lactated Ringers) 1,000 mls @ 175 mls/ hr IV ASDIRECTED [facility] Last Admin: 11/21/18 03:15 Dose: 175 mls/hr Multivitamins/Minerals 10 ml/Thiamine HCl 100 mg/ Chromium/Copper/Manganese/ Seleni/Zn 1 ml/ Dextrose/Lactated Ringer's 1,012 mls @ 175 mls/hr IV DAILY@ 1600 ELVIS Last Admin: 11/20/18 15:50 Dose: 175 mls/hr Cefoxitin Sodium 2 gm/ Sodium (Chloride) 50 mls @ 100 mls/hr IV Q6H [facility] Stop: 11/22/18 12:29 Last Admin: 11/22/18 11:10 Dose: 100 mls/hr Dextrose/Lactated Ringer's (Dextrose 5%-Lactated Ringers) 1,000 mls @ 80 mls/ hr IV ASDIRECTED [facility] Multivitamins/Minerals 10 ml/Thiamine HCl 100 mg/ Chromium/Copper/Manganese/ Seleni/Zn 1 ml/ Dextrose/Lactated Ringer's 1,012 mls @ 80 mls/hr IV DAILY@1600 ELVIS Last Admin: 11/21/18 16:32 Dose: 80 mls/hr Ferric Sodium Gluconate Complex 250 mg/ Sodium Chloride 120 mls @ 60 mls/hr IV Q24H [facility]VIS Stop: 11/22/18 11:59 Last Admin: 11/22/18 12:05 Dose: 60 mls/hr Magnesium Sulfate 2 gm/ Premix 50 mls @ 25 mls/hr IV Q6H ELVIS Stop: 11/24/18 03:59 Last Admin: 11/22/18 14:08 Dose: 25 mls/hr Iohexol (Omnipaque-300) 50 ml IVPUSH . DIRECTED PRN PRN Reason: RADIOLOGY EXAM Stop: 11/22/18 04:12 Last Admin: 11/21/18 04:24 Dose: 50 ml Iopamidol (Isovue-300 (61%)) 100 ml IV . DIRECTED PRN PRN Reason: RADIOLOGY EXAM Stop: 11/20/18 23:04 Last Admin: 11/19/18 23:13 Dose: 100 ml Labetalol HCl (Normodyne) 5 mg IVPUSH Q5M PRN PRN Reason: SBP over 160 OR DBP over 95 Magnesium Hydroxide (Milk Of Magnesia) 30 ml PO ONETIME ONE Stop: 11/22/18 09:01 Last Admin: 11/22/18 09:08 Dose: 30 ml Meperidine HCl (Demerol) 100 mg IM ONETIME ONE Stop: 11/20/18 16:00 Last Admin: 11/20/18 16:26 Dose: 100 mg Meropenem (Merrem) Confirm Administered Dose 500 mg .ROUTE .STK-MED ONE Stop: 11/20/18 07:46 Last Admin: 11/20/18 12:36 Dose: 500 mg Methylprednisolone Sodium Succinate (Solu-Medrol) 80 mg IVPUSH ONETIME STA Stop: 11/21/18 13:56 Last Admin: 11/21/18 14:10 Dose: 80 mg Methylprednisolone Sodium Succinate (Solu-Medrol) 80 mg IVPUSH ONETIME ONE Stop: 11/22/18 10:01 Last Admin: 11/22/18 11:54 Dose: 80 mg Metoclopramide HCl (Reglan) 10 mg IVPUSH Q6H ELVIS Last Admin: 11/20/18 08:02 Dose: 10 mg Metoclopramide HCl (Reglan) 10 mg IVPUSH Q6H PRN PRN Reason: NAUSEA NOT CONTROL BY ZOFRAN Last Admin: 11/21/18 04:57 Dose: 10 mg Morphine Sulfate (Morphine Photoresist Printer 150 Mg In 30 Ml) 0 mg IV ASDIRECTED PRN; Protocol PRN Reason: Pain Last Admin: 11/20/18 14:00 Dose: 1 mg Morphine Sulfate (Morphine Photoresist Printer 150 Mg In 30 Ml) 0 mg IV ASDIRECTED PRN; Protocol PRN Reason: Pain Naloxone HCl (Narcan) 0.1 mg IV ASDIRECTED PRN PRN Reason: DECREASED RESPIRATORY RATE Neostigmine Methylsulfate (Neostigmine) Confirm Administered Dose 5 mg .ROUTE .STK-MED ONE Stop: 11/20/18 10:03 Ondansetron HCl (Zofran) 4 mg IVPUSH ONETIME ONE Stop: 11/19/18 22:38 Last Admin: 11/19/18 22:46 Dose: 4 mg Ondansetron HCl (Zofran) 4 mg IVPUSH Q4H PRN PRN Reason: Nausea/Vomiting Last Admin: 11/20/18 07:03 Dose: 4 mg Ondansetron HCl (Zofran) Confirm Administered Dose 4 mg .ROUTE .STK-MED ONE Stop: 11/20/18 10:03 Oxycodone HCl (Oxycodone) 5 - 10 mg PO Q4H PRN PRN Reason: Pain Last Admin: 11/23/18 06:17 Dose: 10 mg Pantoprazole Sodium (Protonix Iv) 40 mg IVPUSH Q24H [facility] Last Admin: 11/20/18 15:46 Dose: 40 mg Pantoprazole Sodium (Protonix Granules) 40 mg PO Q24H [facility] Last Admin: 11/22/18 15:24 Dose: 40 mg Propofol (Diprivan 20 Ml) Confirm Administered Dose 200 mg .ROUTE .STK-MED ONE Stop: 11/20/18 10:03 Rocuronium Strawn (Zemuron) Confirm Administered Dose 50 mg .ROUTE .STK-MED ONE Stop: 11/20/18 10:03 Rocuronium Strawn (Zemuron) Confirm Administered Dose 50 mg .ROUTE .STK-MED ONE Stop: 11/20/18 13:11 Succinylcholine Chloride (Quelicin) Confirm Administered Dose 200 mg .ROUTE .STK -MED ONE Stop: 11/20/18 10:03 - Exam Physical Findings Comments:: General: No fever, sweats, chills, weight loss or gain. HEENT: Negative. Neck: Supple. Heart: Regular rate and rhythm. Lungs: Clear to auscultation. Abdomen: Dressing removed. Rhianna intact. Expected tenderness with palpation. Disposition: Discharged to home. Condition: Stable and improving. Follow-Up Appointment: Mendy Espitia PA-C on Thursday, November 29 to remove the rhianna.
--- NOTE | 2018-11-30 08:33 | OR ---
DATE OF PROCEDURE: 11/20/2018 PREOPERATIVE DIAGNOSIS: Small bowel obstruction. POSTOPERATIVE DIAGNOSES: 1. Adhesive small bowel obstruction. 2. Separate small bowel stricture. 3. Incarcerated incisional hernia. OPERATIVE PROCEDURE: Exploratory laparotomy with lysis of adhesions and: 1. Small bowel resection (62435). 2. Small bowel stricturoplasty (94109). 3. Repair of incarcerated incisional hernia (86679). ANESTHESIA: General. CUSTOMS COMPLIANCE ANALYST: TRENA White. INDICATION FOR PROCEDURE: The patient presents with recurrent small bowel obstruction picture. Plan is to proceed with an exploratory laparotomy with lysis of adhesions and bowel resection as indicated. Potential risks including bleeding, infection, injury to underlying viscera, leaks from various GI tract closures, and problems with recurrence of the bowel obstruction over time were all reviewed, and the patient wishes to proceed. DETAILS OF PROCEDURE: The patient was taken to the operating room. After general endotracheal anesthesia was induced, a Doss catheter was inserted, and the abdomen prepped and draped. The previous upper midline incision was then reused, extending slightly superiorly, and carried down through full-thickness abdominal wall. In the lower end of the previous incision, a small incarcerated hernia was found containing some incarcerated preperitoneal fat. This was reduced and sent as a separate specimen. Upon entering the peritoneal cavity, the patient had surprisingly quite aggressive adhesion formation in the area of the previous small bowel anastomosis, and this was eventually taken down. The patient was noted to have 2 points of obstruction eventually, one was an adhesive area of obstruction located in the area of the Baljit limb just proximal to the previous anastomosis in that area. As this was taken down, the bowel was noted to be quite edematous and appeared to probably have some submucosal hemorrhages, felt best to be resected. The area of involvement was then divided proximally and distally with KEVIN staplers and underlying mesentery divided with the KEVIN mesenteric loads and the specimens delivered from the field. At this point, the segment of bowel which would have been the limb was felt to be somewhat too short to avoid problems such as bowel reflux. She was also noted at this point to have a small bowel stricture at the point of her previous jejunojejunostomy, which had been altered by movement of the Baljit limb anastomosis somewhat more distally earlier. This area was then treated by means of a small bowel stricturoplasty with the bowel being flipped over on itself and a single opening made and then 2 firings of the KEVIN olivares loads were then accomplished internally between the limbs of the small bowel lying side by side and the common opening closed with KEVIN purple loads. The angles of anastomosis were reinforced with some 3-0 Vicryl stitch and in this case, there was no mesenteric defect. To provide a somewhat longer Baljit limb at this point, the biliopancreatic limb was divided roughly 20 cm proximal to the stricturoplasty and then reimplanted at a point roughly 20 cm distal to the stricturoplasty. Resection of 40 cm of the Baljit limb was then incorporated by means of the anastomosis between what had been the previously divided proximal end of the Baljit limb to the newly divided end. The way the bowel fell together was felt to be best done with an EEA stapler. A 28 mm EEA stapler was then selected. A small opening in the proximally divided small bowel was then made and the anvil placed into the lumen of the small bowel, which would then be closed off with a KEVIN staple line. The anvil was then brought out through the midportion of the staple line, and the main body of the EEA stapler was then placed through the more distal small bowel, brought up the anvil, and united with it, thus creating the jejunojejunostomy. Upon removal of the stapler, double donuts of mucosa were noted. The small bowel and the opening where the stapler had been brought through was closed off with a KEVIN staple line as well. The angles of anastomosis were reinforced with a series of 3-0 Vicryl seromuscular stitch. At this point, no further problems were noted. The abdomen was irrigated with antibiotic-containing saline solution. Previously we had used some Interceed mesh, as well as fibrin sealant, and we felt that either one of these may have contributed to the patient's somewhat overly aggressive adhesion formation and that she may have reacted to those substances. Given this, none of this was used in this case. We were able to mobilize some omentum underneath the incision to a large extent, and it was then sutured to the lower end of the incision during the course of the closure. The midline fascia was then approximated with #2 Vicryl stitch, which included repair of the incarcerated incisional hernia. The subcutaneous tissue was closed with a layer of 3-0 Vicryl stitch deep and a 4-0 Vicryl subdermal stitch and yulisa for the skin. A dressing was applied. At the beginning of the procedure, bilateral transversus abdominis plane blocks had also been placed. Yulisa were used to close the skin, and the patient was taken to the recovery room in satisfactory condition. There were no evident complications. Presley Perez MD /[id number]
== END 2018-11-23 09:01 | disposition home or self-care (01) | DRG 330 ==
LOC: JP.ED 21:53 → JP.ICU 23:55 → JP.2SS 11-21 11:54 → JP.MS 11-22 14:58
PROVIDERS: ADMIT Surgery; ATTEND Surgery
PROC: 0DN80ZZ Release Small Intestine, Open Approach (ICD-10-PCS; principal; 2018-11-20)
PROC: 0DBA0ZZ Excision of Jejunum, Open Approach (ICD-10-PCS; 2018-11-20)
PROC: 0DN80ZZ Release Small Intestine, Open Approach (ICD-10-PCS; 2018-11-20)
PROC: 0DNU0ZZ Release Omentum, Open Approach (ICD-10-PCS; 2018-11-20)
PROC: 0WQF0ZZ Repair Abdominal Wall, Open Approach (ICD-10-PCS; 2018-11-20)
DX: K56.50 Intestinal adhesions [bands], unspecified as to partial versus complete obstruction (principal); K43.0 Incisional hernia with obstruction, without gangrene; K56.699 Other intestinal obstruction unspecified as to partial versus complete obstruction; Z98.84 Bariatric surgery status; K21.9 Gastro-esophageal reflux disease without esophagitis; R79.89 Other specified abnormal findings of blood chemistry; E83.42 Hypomagnesemia; D50.9 Iron deficiency anemia, unspecified; Z88.1 Allergy status to other antibiotic agents; Z88.8 Allergy status to other drugs, medicaments and biological substances; L29.9 Pruritus, unspecified; T45.4X5A Adverse effect of iron and its compounds, initial encounter; Y92.230 Patient room in hospital as the place of occurrence of the external cause
CPT/HCPCS: 36415; 74177; 74240; 80048; 80053; 82607; 82728; 82746; 83690; 83735; 84100; 85025; 85027; 88302; 88307; 94762; 96361; 96374; 96375; 99285-25; A9270-GY; C9113; J0131; J0171; J0330; J0694; J1100; J1170; J1200; J2175; J2185; J2270; J2405; J2704; J2710; J2765; J2795; J2916; J2920; J2930; J3010; J3410; J3411; J3420; J3475; J3490; J7030; J7042; J7050; J7120; Q9967

== ENCOUNTER 2018-12-21 19:13 | Emergency (ER) | payer OTHER | END 2018-12-21 19:40 | disposition left against medical advice (07) | LOC: JP.ED 19:13 | DX: Z53.21 Procedure and treatment not carried out due to patient leaving prior to being seen by health care provider (principal) ==

== ENCOUNTER 2018-12-28 07:11 | Day surgery (SDC) | payer OTHER ==
[2018-12-28] MEDS ORDERED: fentaNYL 100 MCG/2 ML SDV ONE (07:45)
[2018-12-28] MEDS ORDERED: Midazolam 1 MG/ML 2 ML SDV ONE (07:45)
[2018-12-28] MEDS ORDERED: Propofol 200 MG/20 ML SDV ONE (07:45)
[2018-12-28] MEDS ORDERED: Cyanocobalamin (Vitamin B12) 1,000 MCG/ML SDV IM ONE (08:00)
[2018-12-28] MEDS ORDERED: Lactated Ringers 1,000 ML IV SCH (08:00)
[2018-12-28] MEDS ORDERED: Glycopyrrolate 0.2 MG/ML 2 ML SDV IVPUSH ONE (09:00)
[2018-12-28] MEDS ORDERED: Pantoprazole 40 MG Vial IVPUSH ONE (09:26)
[2018-12-28] MEDS ORDERED: MVI, Adult with Vitamin K 10 ML, Thiamine 200 MG, Chromium/Copper/Mang/Selen/Zn 1 ML in... IV ONE ×4 (10:00)
[2018-12-28 11:08] VITALS: BP 97/61
--- NOTE | 2019-01-03 12:24 | OR ---
DATE OF PROCEDURE: 12/28/2018 PREOPERATIVE DIAGNOSIS: Epigastric discomfort and dysphagia status post Baljit-en-Y gastric bypass. POSTOPERATIVE DIAGNOSIS: Mild pouch gastritis. OPERATIVE PROCEDURE: Upper gastrointestinal endoscopy with biopsy of gastric pouch for CLOtest. ANESTHESIA: IV sedation. INDICATIONS FOR PROCEDURE: The patient is status post previous Baljit-en-Y gastric bypass presenting with some ongoing epigastric discomfort and dysphagia. She recently was started on some Protonix and has been taking that on a b.i.d. basis over the past few days. The plan is to proceed with an upper GI endoscopy with biopsies and/or dilation as indicated. Potential risks including bleeding and perforation were discussed, and the patient wishes to proceed. DETAILS OF PROCEDURE: The patient was taken to the operating room and placed in a left lateral decubitus position. IV sedation was administered, after which the upper GI endoscope was passed orally through the length of the esophagus and into the gastric pouch, and from there through the gastrojejunostomy roughly 20 cm into the Baljit limb. Findings included normal esophagus and EG junction area. The gastric pouch had some redness and edema, particularly in the area just proximal to the gastrojejunostomy, causing the patient's symptoms. There were no erosions or ulcers seen and no stricturing in the gastrojejunostomy per se. The remaining portion of the Baljit limb was visualized and was unremarkable. At this point, biopsies were obtained from the gastric pouch and sent for CLOtest for H. pylori. Minimal bleeding from the biopsy site was seen and the procedure then concluded. Plan will be to have the patient continue with Protonix on a b.i.d. dosing pattern for the next week and then go to once daily. We will also add Carafate 500 mg q.i.d. in liquid form as a prescription versus half of the 1 g pill being dissolved in a small amount of water prior to taking that dose. This will be done q.i.d., and the patient will be followed up by Mendy Espitia at [facility] in the early part of next month. Presley Perez MD /[id number]
== END 2018-12-28 11:17 | disposition home or self-care (01) ==
LOC: JP.SDS 07:11
PROVIDERS: ATTEND Surgery
DX: K95.89 Other complications of other bariatric procedure (principal)
CPT/HCPCS: 43239; 81025; 87081; C9113; J2250; J2704; J3010; J3411; J3420; J3490; J7120

== ENCOUNTER 2020-12-22 15:30 | Inpatient (IN) | payer BC ==
--- NOTE | 2020-12-22 16:19 | EDM.PDOC ---
ED HPI GENERAL MEDICAL PROBLEM - General Chief Complaint: Abdominal Pain Stated Complaint: , TOLD TO COME IN Time Seen by Provider: 12/22/20 16:04 Source of Information: Reports: Patient History Limitations: Reports: No Limitations - History of Present Illness INITIAL COMMENTS - FREE TEXT/NARRATIVE: 45-year-old female who has been having abdominal pain for the past week, was as sessed 2 days ago and found to have a short area of intussusception in the small bowel. She was asked to stick with just clear liquids and recheck if worsening. Over the past 36 hours she has had no bowel movement or passage of air, feels more distended and having more pain. Nausea but no vomiting, no fevers or chills. It feels similar to past bowel obstructions that she has had. Pain is central in the abdomen and radiates to the right and lower abdomen, not to the back. Onset: Gradual Duration: Day(s): (7 days) Location: Reports: Abdomen Quality: Reports: Ache, Sharp Associated Symptoms: Reports: Loss of Appetite. Denies: Confusion, Chest Pain, Cough, Fever/Chills, Shortness of Breath, Weakness Abdomen Pain Score (Numeric/FACES): 6 - Related Data Allergies Allergy/AdvReac Type Severity Reaction Status Date / Time nitrofurantoin Allergy Intermediate Rash Verified 12/22/20 17:49 [From Macrobid] nitrofurantoin Allergy Intermediate Rash Verified 12/22/20 17:49 macrocrystalline [From Macrobid] adhesive tape Allergy Other Verified 12/22/20 17:49 celecoxib [From Celebrex] Allergy Facial Verified 12/22/20 17:49 Swelling gabapentin Allergy Facial Verified 12/22/20 17:49 Swelling sodium ferric gluconate Allergy Itching Verified 12/22/20 17:49 complex Home Meds: Home Meds Multivitamin [Chewable Multi Vitamin] 1 tab.chew PO DAILY 10/29/13 [History] Calcium Citrate 250 mg PO BID 12/27/18 [History] Cyanocobalamin (Vitamin B-12) [B-12] 2,500 mcg SL DAILY 12/27/18 [History] Pantoprazole [ProTONIX] 40 mg PO BID 12/27/18 [History] Vitamin B Complex [B Complex] 1 each PO DAILY 12/27/18 [History] Past Medical History HEENT History: Reports: None Gastrointestinal History: Reports: Bowel Obstruction, GERD 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: , 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 Hematologic History: Reports: Iron Deficiency - Infectious Disease History Infectious Disease History: Reports: Chicken Pox - Past Surgical History HEENT Surgical History: Reports: CHRI[facility] GI Surgical History: Reports: Bariatric Procedure, Cholecystectomy, EGD, Hernia Repair/Other, Lysis of Adhesions, Small Bowel Female Surgical History: Reports: Section, Tubal Ligation Social & Family History - Family History Family Medical History: No Pertinent Family History - Tobacco Use Tobacco Use Status *Q: Never Tobacco User - Caffeine Use Caffeine Use: Reports: Soda - Recreational Drug Use Recreational Drug Use: No ED ROS GENERAL - Review of Systems Review Of Systems: See Below Constitutional: Denies: Fever, Chills Respiratory: Reports: No Symptoms Cardiovascular: Reports: No Symptoms : Reports: No Symptoms. Denies: Dysuria Skin: Reports: No Symptoms Neurological: Reports: No Symptoms ED EXAM, GI/ABD - Physical Exam Exam: See Below Exam Limited By: No Limitations General Appearance: Alert, No Apparent Distress (Looks uncomfortable but no distress) Eyes: Bilateral: Normal Appearance Head: Atraumatic, Normocephalic Respiratory/Chest: No Respiratory Distress, Lungs Clear Cardiovascular: Regular Rate, Rhythm. No: Tachycardia GI/Abdominal Exam: Normal Bowel Sounds, Soft, Tender (Abdomen is soft to palpation but tender in the mid abdomen, no significant rebound tenderness despite slight guarding) Extremities: Normal Inspection Neurological: Alert, Oriented Psychiatric: Normal Affect, Normal Mood Skin Exam: Warm, Dry Course - Vital Signs Last Recorded V/S: Last Vital Signs Temp 97.6 F 12/22/20 22:38 Pulse 56 L 12/22/20 22:38 Resp 16 12/22/20 22:38 BP 99/50 L 12/22/20 22:38 Pulse Ox 97 12/22/20 22:38 - Orders/Labs/Meds Orders: Medication Orders Diphenhydramine HCl (Diphenhydramine 50 Mg/Ml Sdv) 25 - 50 mg IVPUSH Q4H PRN PRN Reason: Itching Last Admin: 12/23/20 06:33 Dose: 50 mg Documented by: Admin: 12/23/20 00:41 Dose: 50 mg Documented by: Admin: 12/22/20 20:08 Dose: 50 mg Documented by: KENN Fentanyl (Fentanyl 100 Mcg/2 Ml Sdv) 50 mcg IVPUSH Q2H PRN PRN Reason: PAIN Last Admin: 12/23/20 06:33 Dose: 50 mcg Documented by: Admin: 12/23/20 00:39 Dose: 50 mcg Documented by: Admin: 12/22/20 19:44 Dose: 50 mcg Documented by: KENN Dextrose/Lactated Ringer's (Dextrose 5%-Lactated Ringers) 1,000 mls @ 175 mls/hr IV ASDIRECTED ELVIS Last Admin: 12/23/20 00:38 Dose: 175 mls/hr Documented by: Infusion: 12/23/20 00:35 Dose: 175 mls/hr Documented by: Admin: 12/22/20 18:52 Dose: 175 mls/hr Documented by: JAN Ondansetron HCl (Ondansetron 4 Mg/2 Ml Sdv) 4 mg IVPUSH Q4H PRN PRN Reason: Nausea Labs: Laboratory Tests 12/22/20 12/22/20 12/22/20 Range/Units 16:12 16:31 16:31 WBC 5.7 (4.5-11.0) K/uL RBC 4.12 (3.30-5.50) M/uL Hgb 11.7 L (12.0-15.0) g/dL Hct 37.7 (36.0-48.0) % MCV 92 (80-98) fL MCH 28 (27-31) pg MCHC 31 L (32-36) % Plt Count 270 (150-400) K/uL Neut % (Auto) 53 (36-66) % Lymph % (Auto) 29 (24-44) % [place] % (Auto) 17 H (2-6) % Eos % (Auto) 1 L (2-4) % Baso % (Auto) 1 (0-1) % Sodium 141 (140-148) mmol/L Potassium 4.1 (3.6-5.2) mmol/L Chloride 104 (100-108) mmol/L Carbon Dioxide 26 (21-32) mmol/L Anion Gap 10.6 (5.0-14.0) mmol/L BUN 13 D (7-18) mg/dL Creatinine 0.6 (0.6-1.0) mg/dL Est Cr Clr Drug Dosing 103.32 mL/min Estimated GFR (MDRD) > 60 (>60) Glucose 92 (74-106) mg/dL Lactic Acid 0.8 (0.4-2.0) mmol/L Calcium 8.7 (8.5-10.1) mg/dL Total Bilirubin 0.3 (0.2-1.0) mg/dL AST 18 (15-37) U/L ALT 27 (12-78) U/L Alkaline Phosphatase 116 (46-116) U/L Total Protein 6.7 (6.4-8.2) g/dL Albumin 3.5 (3.4-5.0) g/dL Globulin 3.2 (2.3-3.5) g/dL Albumin/Globulin Ratio 1.1 L (1.2-2.2) Meds: Medications Generic Name Dose Route Start Last Admin Trade Name Freq PRN Reason Stop Dose Admin Diphenhydramine HCl 25 - 50 mg 12/22/20 19:56 12/23/20 06:33 Diphenhydramine 50 Mg/Ml Sdv IVPUSH 50 mg Q4H PRN Administration Itching Fentanyl 50 mcg 12/22/20 17:46 12/23/20 06:33 Fentanyl 100 Mcg/2 Ml Sdv IVPUSH 50 mcg Q2H PRN Administration PAIN Dextrose/Lactated Ringer's 1,000 mls @ 175 mls/hr 12/22/20 17:45 12/23/20 00:38 Dextrose 5%-Lactated Ringers IV 175 mls/hr ASDIRECTED ELVIS Administration Ondansetron HCl 4 mg 12/22/20 17:44 Ondansetron 4 Mg/2 Ml Sdv IVPUSH Q4H PRN Nausea Discontinued Medications Generic Name Dose Route Start Last Admin Trade Name Freq PRN Reason Stop Dose Admin Fentanyl 50 mcg 12/22/20 17:23 12/22/20 17:30 Fentanyl 100 Mcg/2 Ml Sdv IVPUSH 12/22/20 17:24 50 mcg ONETIME ONE Administration Lactated Ringer's 1,000 mls @ 500 mls/hr 12/22/20 16:45 12/22/20 16:49 Ringers, Lactated IV 500 mls/hr ASDIRECTED ELVIS Administration Ondansetron HCl 4 mg 12/22/20 17:23 12/22/20 17:34 Ondansetron 4 Mg/2 Ml Sdv IVPUSH 12/22/20 17:24 4 mg ONETIME ONE Administration - Re-Assessments/Exams Free Text/Narrative Re-Assessment/Exam: 12/22/20 16:22 An IV will be started, she will be hydrated and CBC, CMP and lactic acid obtained. Dr. Perez will be informed of the lab results. 12/22/20 17:10 Lab results are reassuring, white count is normal, lactic acid is normal. IV was started and patient will receive D5 lactated Ringer on the floor, and admitted to Dr. Perez service. N.p.o. after midnight. Departure - Departure Time of Disposition: 17:40 Disposition: Admitted As Inpatient 67 Clinical Impression: Intussusception intestine Abdominal pain Qualifiers: Abdominal location: generalized Qualified Code(s): R10.84 - Generalized abdominal pain - Discharge Information Sepsis Event Note (ED) - Evaluation Sepsis Screening Result: No Definite Risk
[2020-12-22] MEDS ORDERED: Lactated Ringers 1,000 ML IV SCH (16:45)
[2020-12-22] MEDS ORDERED: fentaNYL 100 MCG/2 ML SDV IVPUSH ONE (17:23)
[2020-12-22] MEDS ORDERED: Ondansetron 4 MG/2 ML SDV IVPUSH ONE (17:23)
[2020-12-22] MEDS ORDERED: Ondansetron 4 MG/2 ML SDV IVPUSH PRN (17:44)
[2020-12-22] MEDS: Dextrose 5%-Lactated Ringers 1,000 ML IV SCH (18:52)
[2020-12-22] MEDS: fentaNYL 100 MCG/2 ML SDV IVPUSH PRN (19:44)
[2020-12-22] MEDS: diphenhydrAMINE 50 MG/ML SDV IVPUSH PRN (20:08)
[2020-12-23] MEDS: Dextrose 5%-Lactated Ringers 1,000 ML IV SCH ×3 (00:38→13:15)
[2020-12-23] MEDS: fentaNYL 100 MCG/2 ML SDV IVPUSH PRN ×7 (00:39→21:09)
[2020-12-23] MEDS: diphenhydrAMINE 50 MG/ML SDV IVPUSH PRN ×4 (00:41→21:10)
[2020-12-23] MEDS: methylPREDNISolone Sodium Succinate 125 MG/2 ML SDV IVPUSH SCH (14:51)
[2020-12-23] MEDS: Famotidine 20 MG/2 ML SDV IVPUSH SCH (14:54)
[2020-12-23] MEDS: Sodium Ferric Gluconate Cmplex 250 MG in Sodium Chloride 0.9% 100 ML IV SCH (14:57)
[2020-12-24] MEDS: fentaNYL 100 MCG/2 ML SDV IVPUSH PRN ×4 (00:04→20:54)
[2020-12-24] MEDS: diphenhydrAMINE 50 MG/ML SDV IVPUSH PRN ×2 (05:34→20:54)
[2020-12-24 06:44] LABS: CORONAVIRUS COVID-19 NAA NEGATIVE (NEGATIVE)
[2020-12-24] MEDS ORDERED: Bisacodyl 10 MG Supp RECTAL ONE ×3 (07:40→13:00)
[2020-12-24] MEDS ORDERED: Sodium Phosphate,Monobasic/Sodium Phosphate,Dibasic Enema 133 ML Bottle RECTAL PRN (08:34)
[2020-12-24] MEDS: methylPREDNISolone Sodium Succinate 125 MG/2 ML SDV IVPUSH SCH (08:37)
[2020-12-24] MEDS: Famotidine 20 MG/2 ML SDV IVPUSH SCH (08:37)
[2020-12-24] MEDS: Dextrose 5%-Lactated Ringers 1,000 ML IV SCH ×2 (08:48)
[2020-12-24] MEDS ORDERED: Acetaminophen 500 MG Tab PO ONE (09:00)
[2020-12-24] MEDS ORDERED: cefOXitin 2 GM in Sodium Chloride 0.9% 50 ML IV ONE (09:00)
[2020-12-24] MEDS ORDERED: Magnesium Sulfate 2 GM in Sodium Chloride 0.9% 100 ML IV SCH (10:00)
[2020-12-24] MEDS ORDERED: Magnesium Sulfate 2.2 GM in Sodium Chloride 0.9% 250 ML IV ONE (10:00)
[2020-12-24] MEDS ORDERED: Ketamine 50 MG in Sodium Chloride 0.9% 49.5 ML IV SCH (10:00)
[2020-12-24] MEDS ORDERED: Ropivacaine 35 ML, dexAMETHasone 8 MG, EPINEPHrine 0.4 MG, Sodium Chloride 0.9% 42.6 ML NERVRT SCH ×4 (10:00)
[2020-12-24] MEDS ORDERED: Ketamine 500 MG/5 ML MDV IV SCH (10:00)
--- NOTE | 2020-12-24 10:19 | PN ---
DATE OF SERVICE: 12/24/2020 SUBJECTIVE: Ally has a small area of intussusception in the small bowel, but her large colon shows increased amount of constipation. She has been afebrile. Vital signs stable. Oral intake 1800. Urine output 5400. She is getting the iron gluconate IV. REVIEW OF SYSTEMS: Denies abdominal pain. Been on a clear liquid diet. Has had no fever, chills, or night sweats. Denies headache. No chest pain, shortness of breath. Denies any increase in abdominal pain. Denies any joint pain. Has no skin rash. Neuro: No depression or anxiety. Remainder of review of systems negative for any pertinent positives and negatives. OBJECTIVE: GENERAL: Ally Singh is a pleasant 45-year-old female. VITAL SIGNS: Height is 5 feet 4 inches, weight is 156 pounds. TPR is 95.7, 73, 16, blood pressure 113/57. HEENT: Negative. NECK: Supple. HEART: Regular rate and rhythm. LUNGS: Clear. ABDOMEN: Soft, nontender. EXTREMITIES: Without peripheral edema. ASSESSMENT: Constipation. PLAN: 1. Give 1 L of soapsuds enema now followed by Dulcolax suppository and to repeat soapsuds enema early afternoon followed by Dulcolax suppository. Consult Dr. Wiseman for severe constipation. 2. Step 1 double portion gastric bypass diet. 3. Check flat and upright abdominal film in a.m. at 0400. 4. To follow up p.r.n. or in a.m. Mendy Espitia PA-C /[id number]
[2020-12-24] MEDS: Sodium Ferric Gluconate Cmplex 250 MG in Sodium Chloride 0.9% 100 ML IV SCH (10:36)
--- NOTE | 2020-12-24 10:39 | PCM.CONS ---
H&P History of Present Illness - General Date of Service: 12/24/20 Admit Problem/Dx: Admission Diagnosis/Problem Admission Diagnosis/Problem Intussusception of intestine Source of Information: Patient, Provider, RN Notes Reviewed History Limitations: Reports: No Limitations - History of Present Illness Initial Comments - Free Text/Narative: Ms. Singh is a 45-year-old woman who I been asked to see by Dr. Perez for recommendations concerning management of constipation. She is status post Baljit-en-Y gastric bypass surgery several years ago and since then has had intermittent difficulty with bowel obstruction, requiring several surgeries in the past. She presented over the weekend with increased abdominal pain CT scan did show evidence of a small intussusception. She also had a large amount of stool throughout the colon. She is feeling somewhat better and did have a large bowel movement this morning already. Typically she has a bowel movement every 1 to 3 days but is unable to tell symptomatically that she is developing constipation. She has tried various things in the past including stool softeners which have not been of significant benefit. Abdomen Pain Score (Numeric/FACES): 4 - Related Data Allergies/Adverse Reactions: Allergies Allergy/AdvReac Type Severity Reaction Status Date / Time nitrofurantoin Allergy Intermediate Rash Verified 12/22/20 17:49 [From Macrobid] nitrofurantoin Allergy Intermediate Rash Verified 12/22/20 17:49 macrocrystalline [From Macrobid] adhesive tape Allergy Other Verified 12/22/20 17:49 celecoxib [From Celebrex] Allergy Facial Verified 12/22/20 17:49 Swelling gabapentin Allergy Facial Verified 12/22/20 17:49 Swelling sodium ferric gluconate Allergy Itching Verified 12/22/20 17:49 complex Home Medications: Home Meds Multivitamin [Chewable Multi Vitamin] 1 tab.chew PO DAILY 10/29/13 [History] Calcium Citrate 250 mg PO BID 12/27/18 [History] Cyanocobalamin (Vitamin B-12) [B-12] 2,500 mcg SL DAILY 12/27/18 [History] Pantoprazole [ProTONIX] 40 mg PO BID 12/27/18 [History] Vitamin B Complex [B Complex] 1 each PO DAILY 12/27/18 [History] Past Medical History HEENT History: Reports: None Gastrointestinal History: Reports: Bowel Obstruction, GERD Genitourinary History: Reports: None 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: , 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 Hematologic History: Reports: Iron Deficiency - Infectious Disease History Infectious Disease History: Reports: Chicken Pox - Past Surgical History Head Surgeries/Procedures: Reports: None HEENT Surgical History: Reports: LASIK GI Surgical History: Reports: Bariatric Procedure, Cholecystectomy, EGD, Hernia Repair/Other, Lysis of Adhesions, Small Bowel, Other (See Below) Other GI Surgeries/Procedures: rny Female Surgical History: Reports: Section, Tubal Ligation Dermatological Surgical History: Reports: None Social & Family History - Family History Family Medical History: No Pertinent Family History - Tobacco Use Tobacco Use Status *Q: Never Tobacco User Second Hand Smoke Exposure: No - Caffeine Use Caffeine Use: Reports: Coffee, Soda, Tea - Recreational Drug Use Recreational Drug Use: No H&P Review of Systems - Review of Systems: Review Of Systems: See Below General: Reports: No Symptoms Pulmonary: Reports: No Symptoms Cardiovascular: Reports: No Symptoms Gastrointestinal: Reports: No Symptoms Genitourinary: Reports: No Symptoms Exam - Exam Exam: See Below - Vital Signs Vital Signs: Last Vital Signs Temp 95.7 F L 12/24/20 07:18 Pulse 73 12/24/20 07:18 Resp 16 12/24/20 07:18 BP 113/57 L 12/24/20 07:18 Pulse Ox 100 12/24/20 07:18 Weight: 156 lb - Exam General: Alert, Oriented, Cooperative Lungs: Clear to Auscultation, Normal Respiratory Effort Cardiovascular: Regular Rate, Regular Rhythm, Normal S1, Normal S2. No: Systolic Murmur, Diastolic Murmur GI/Abdominal Exam: Soft, No Organomegaly, Tender. No: Distended, Guarding, Rigid, Rebound Extremities: Non-Tender, No Pedal Edema - Patient Data Lab Results Last 24 hrs: Laboratory Results - last 24 hr 12/24/20 Range/Units 05:50 Influenza Type A RNA Negative (NEGATIVE) RSV RNA (INAAT) Negative (NEGATIVE) Influenza Type B RNA Negative (NEGATIVE) SARS-CoV-2 RNA (COLE) Negative (NEGATIVE) Result Diagrams: 12/22/20 16:12 12/22/20 16:31 Sepsis Event Note - Evaluation Sepsis Screening Result: No Definite Risk - Focused Exam Vital Signs: Vital Signs Temp Pulse Resp BP Pulse Ox 12/24/20 07:18 95.7 F L 73 16 113/57 L 100 12/24/20 03:00 97.9 F 57 L 16 99/57 L 97 12/23/20 22:40 96.7 F L 58 L 16 108/56 L 96 Consult PN Assessment/Plan Procedures: Procedures CT ABD & PELV W/CONTRAST (02/09/19) CULTURE SCREEN ONLY (12/28/18) EGD BIOPSY SINGLE/MULTIPLE (12/28/18) URINE TEST (12/28/18) Problem List Initiated/Reviewed/Updated: Yes My Orders Last 24 Hours: My Active Orders 12/24/20 10:45 Lactobacillus Rhamnosus GG [Culturelle] 1 cap PO BID Plan: ASSESSMENT AND RECOMMENDATIONS CONSTIPATION-intermittent problem for her over the past several years also history of recurrent bowel obstructions. Noted to have small intussusception on evaluation for this admission. She is feeling better already after having had a large bowel movement this morning. -Senna S1-2 a day as needed to maintain 1 bowel movement daily -Probiotic twice daily Requesting Provider: MIK Date Consult Requested: 12/24/20 Reason for Consult: Constipation Patient History Reviewed: Yes
[2020-12-24] MEDS: Lactobacillus Rhamnosus GG (Probiotic) Cap PO SCH ×2 (10:45→20:55)
--- NOTE | 2020-12-24 12:31 | CR ---
Abdomen 2V AP Flat Upright CLINICAL HISTORY: Abdominal pain FINDINGS: Patient has had previous gastric surgery and cholecystectomy. Small intestinal configuration is nonspecific. There is a large amount of stool throughout the colon. No free air is identified IMPRESSION: Nonspecific intestinal gas pattern Previous bariatric surgery Moderate retained stool
--- NOTE | 2020-12-24 15:19 | PN ---
DATE OF SERVICE: 12/23/2020 The patient was admitted through the emergency room with a picture of small-bowel obstruction. The CT scan shows some dilated bowel loops and this seems very similar to the bowel obstruction she has had in the past. Plan will be to proceed with a full liquid diet today and if clinically she is not improved, we will proceed with laparotomy tomorrow with release of bowel obstruction and possible bowel resection. Potential risks of procedure were reviewed with the patient and she wishes to proceed. Presley Perez MD /[id number]
[2020-12-24] MEDS ORDERED: Acetaminophen 500 MG Tab PO PRN (21:55)
[2020-12-24] MEDS ORDERED: HYDROmorphone 2 MG Tab PO PRN (21:55)
[2020-12-25 03:51] VITALS: BP 110/52
[2020-12-25 07:26] VITALS: PULSE 61
[2020-12-25] MEDS ORDERED: Lubiprostone 24 MCG Cap PO SCH (08:00)
[2020-12-25] MEDS: Lactobacillus Rhamnosus GG (Probiotic) Cap PO SCH (09:00)
--- NOTE | 2020-12-25 09:02 | CR ---
Abdomen 2V AP Flat Upright CLINICAL HISTORY: Constipation FINDINGS: No free air is identified. Patient is status post bariatric surgery and cholecystectomy. There are a few scattered air-filled loops of small bowel in a nonspecific pattern. There is a large amount of retained stool throughout the colon. IMPRESSION: Moderate fecal retention Nonspecific intestinal gas pattern Previous abdominal surgery
--- NOTE | 2020-12-25 09:28 | DISCH ---
ADMISSION DIAGNOSES: Abdominal pain, small area of intussusception, constipation, status post Baljit-en-Y gastric bypass surgery, unspecified surgical malabsorption, and B12 deficiency. DISCHARGE DIAGNOSES: Constipation resolved status post Baljit-en-Y gastric bypass surgery unspecified surgical malabsorption, vitamin B12 deficiency, vitamin B1 deficiency, vitamin D deficiency, and iron deficiency anemia. HISTORY: Ally Singh is a pleasant 45-year-old female who presented to the emergency room due to abdominal pain for 2 days and she was unable to have a bowel movement in 36 hours. She did have an area of 2.5 cm of intussusception, but her severe constipation as noted on abdominal flat and upright was more in line with her pain and symptoms. Ally was admitted on 12/22/2020. She was given IV fluids. Lab work was checked. She was given bowel stimulation and she did have an internal medicine consult. Her bowels did start moving after bowel stimulation and 2 L soapsuds enemas. Ally was able to be discharged to home on 12/25/2020. REVIEW OF SYSTEMS: HEENT: Negative. NECK: Negative. CHEST: No chest pain, shortness of breath. LUNGS: No cough. ABDOMEN: Bowel movements have been adequate. Abdominal flat and upright improved. EXTREMITIES: Without joint pain. NEURO: Negative for headache, dizziness, loss of coordination. PSYCHIATRIC: No insomnia, depression, or anxiety. SKIN: No rash. Remainder of review of systems negative for any pertinent positives, negatives. OBJECTIVE: GENERAL: Ally Singh is a pleasant 45-year-old female. VITAL SIGNS: Height is 5 feet 4 inches, weight is 156 pounds. TPR 96, 61, 18, blood pressure is 110/52. HEENT: Negative. NECK: Supple. HEART: Regular rate and rhythm. LUNGS: Clear. ABDOMEN: Soft, nontender. EXTREMITIES: Without peripheral edema. NEURO: Intact. PSYCHIATRIC: Mood and affect appropriate. DISPOSITION: Discharged to home. CONDITION: Stable and improving. HOME MEDICATIONS: Amitiza 24 p.o. b.i.d., #60; Culturelle 1 capsule p.o. b.i.d.; MiraLAX 17 g p.o. b.i.d., #60; Senna Plus 2 at bedtime. She is to resume her other home medications. FOLLOWUP APPOINTMENT: Mendy Espitia PA-C, on 01/01/2021 at 10 a.m. DIET: Step-2 gastric bypass diet and advance as tolerated. Drink 8 to 10 glasses of water a day. ACTIVITY: As tolerated. Notify provider if any fever, increased pain, nausea, vomiting. /[id number]
== END 2020-12-25 09:11 | disposition home or self-care (01) | DRG 247 ==
LOC: JP.ED 15:30 → JP.MS 17:08
PROVIDERS: ADMIT Surgery; ATTEND Surgery
DX: K56.1 Intussusception (principal); K59.00 Constipation, unspecified; K90.9 Intestinal malabsorption, unspecified; E53.8 Deficiency of other specified B group vitamins; E51.9 Thiamine deficiency, unspecified; E55.9 Vitamin D deficiency, unspecified; D50.9 Iron deficiency anemia, unspecified; K21.9 Gastro-esophageal reflux disease without esophagitis; Z88.1 Allergy status to other antibiotic agents; Z98.84 Bariatric surgery status; Z91.048 Other nonmedicinal substance allergy status; Z88.8 Allergy status to other drugs, medicaments and biological substances; Z79.899 Other long term (current) drug therapy; Z90.49 Acquired absence of other specified parts of digestive tract; Z98.51 Tubal ligation status; K56.609 Unspecified intestinal obstruction, unspecified as to partial versus complete obstruction; Z20.822 Contact with and (suspected) exposure to COVID-19
CPT/HCPCS: 0241U; 36415; 74019; 74019-26; 80053; 82728; 83605; 84443; 85025; 96374; 96375; 99221; 99284-25; 99285; A9270-GY; J1200; J2405; J2916; J2930; J3010; J3490; J7120; J7121

== ENCOUNTER 2021-10-29 17:22 | Emergency (ER) | payer SELFPAY ==
[2021-10-29 17:42] VITALS: PULSE 68
[2021-10-29] MEDS ORDERED: Alum Hydrox/Mag Hydrox/Simeth 15 ML, Lidocaine 2% 15 ML PO ONE ×2 (17:48)
[2021-10-29] MEDS ORDERED: Promethazine 25 MG Tab PO ONE (17:48)
[2021-10-29 18:08] VITALS: BP 105/40
[2021-10-29] MEDS ORDERED: Scopolamine 1.5 MG Transdermal Patch TRDERM ONE (18:44)
[2021-10-29 18:52] LABS: CORONAVIRUS COVID-19 NAA NEGATIVE (NEGATIVE)
== END 2021-10-29 19:05 | disposition home or self-care (01) ==
LOC: JP.ED 17:22
DX: R07.89 Other chest pain (principal); E87.6 Hypokalemia; K21.9 Gastro-esophageal reflux disease without esophagitis; Z98.84 Bariatric surgery status; Z88.1 Allergy status to other antibiotic agents; Z91.048 Other nonmedicinal substance allergy status; Z88.6 Allergy status to analgesic agent; Z88.8 Allergy status to other drugs, medicaments and biological substances; Z79.899 Other long term (current) drug therapy; Z20.822 Contact with and (suspected) exposure to COVID-19
CPT/HCPCS: 0241U; 36415; 80048; 84484; 85025; 93005; 99285; A9270

== ENCOUNTER 2022-05-20 21:48 | Emergency (ER) | payer BC ==
[2022-05-20] MEDS ORDERED: Sodium Chloride 0.9% 10 ML Syringe FLUSH PRN (22:35)
[2022-05-20] MEDS ORDERED: Ondansetron 4 MG/2 ML SDV IVPUSH ONE (22:35)
[2022-05-20] MEDS ORDERED: fentaNYL 100 MCG/2 ML SDV IVPUSH ONE (22:35)
[2022-05-20] MEDS ORDERED: Lactated Ringers 1,000 ML IV ONE (22:35)
[2022-05-20] MEDS ORDERED: Iopamidol 612 MG/ML 100 ML Bottle IV STA (22:51)
[2022-05-20] MEDS ORDERED: Sodium Chloride 0.9% 50 ML IV STA (22:52)
[2022-05-20 23:00] VITALS: BP 118/69; PULSE 85
[2022-05-20 23:37] LABS: ESTIMATED GFR 113 mL/min (>60)
[2022-05-21] MEDS ORDERED: HYDROmorphone 1 MG/ML Syringe IVPUSH ONE (00:14)
== END 2022-05-21 01:29 | disposition home or self-care (01) ==
LOC: JP.ED 21:48
DX: K59.04 Chronic idiopathic constipation (principal); K21.9 Gastro-esophageal reflux disease without esophagitis; Z88.1 Allergy status to other antibiotic agents; Z88.5 Allergy status to narcotic agent; Z91.048 Other nonmedicinal substance allergy status; Z88.8 Allergy status to other drugs, medicaments and biological substances; Z79.899 Other long term (current) drug therapy; Z20.822 Contact with and (suspected) exposure to COVID-19
CPT/HCPCS: 36415; 74177; 80053; 81001; 83605; 83690; 85025; 87635; 96374; 96375; 99284; J1170; J2405; J3010; J3490; J7120; Q9967; 99282; U0002

== ENCOUNTER 2023-04-23 08:49 | Day surgery (SDC) | payer BC ==
[2023-04-23] MEDS: Dextrose 5%-Lactated Ringers 1,000 ML IV SCH (09:27)
[2023-04-23] MEDS ORDERED: Meropenem 500 MG SDV ONE (09:52)
[2023-04-23] MEDS ORDERED: Rocuronium 50 MG/5 ML Vial ONE (10:55)
[2023-04-23] MEDS ORDERED: Dexamethasone 4 MG/ML SDV ONE (10:55)
[2023-04-23] MEDS ORDERED: Glycopyrrolate 0.2 MG/ML 5 ML MDV ONE (10:55)
[2023-04-23] MEDS ORDERED: Ondansetron 4 MG/2 ML SDV ONE (10:55)
[2023-04-23] MEDS ORDERED: Succinylcholine 200 MG/10 ML MDV ONE (10:55)
[2023-04-23] MEDS ORDERED: Propofol 200 MG/20 ML SDV ONE (10:55)
[2023-04-23] MEDS ORDERED: fentaNYL 250 MCG/5 ML SDV ONE (10:55)
[2023-04-23] MEDS ORDERED: Neostigmine Methylsulfate 1 MG/ML 5 ML Syringe ONE (10:55)
[2023-04-23] MEDS: Scopolamine 1.5 MG Transdermal Patch TOP SCH (11:20)
[2023-04-23] MEDS: Meropenem 500 MG in Sodium Chloride 0.9% 50 ML IV ONE (11:50)
[2023-04-23] MEDS: Lidocaine 1% with EPINEPHrine 1:100,000 50 ML MDV ONE (12:07)
[2023-04-23] MEDS: Bupivacaine 0.5% 50 ML MDV ONE (12:07)
[2023-04-23] MEDS: Ondansetron 4 MG/2 ML SDV IVPUSH ONE (12:29)
[2023-04-23] MEDS: Acetaminophen 325 MG Tab PO ONE (13:18)
[2023-04-23] MEDS: oxyCODONE 5 MG Tab PO ONE (13:18)
[2023-04-23 13:59] VITALS: BP 105/65; PULSE 57
== END 2023-04-23 14:00 | disposition home or self-care (01) ==
LOC: JP.SDS 08:49
PROVIDERS: ATTEND Surgery
DX: K91.872 Postprocedural seroma of a digestive system organ or structure following a digestive system procedure (principal); K21.9 Gastro-esophageal reflux disease without esophagitis; R53.83 Other fatigue; E66.9 Obesity, unspecified; Z79.899 Other long term (current) drug therapy; Z68.26 Body mass index [BMI] 26.0-26.9, adult; Z98.890 Other specified postprocedural states
CPT/HCPCS: 10030; 76998; 87070; 87075; 87205; A9270; J0330; J1100; J2185; J2405; J2704; J2710; J3010; J3490; J7121; J2020

== ENCOUNTER 2023-06-09 07:49 | Inpatient (IN) | payer BC ==
[~2023-06-09 07:49] MED LIST: Bupivacaine 0.5% 50 ML MDV ONE; Dexamethasone 4 MG/ML SDV ONE; Glycopyrrolate 0.2 MG/ML 5 ML MDV ONE; Lidocaine 1% with EPINEPHrine 1:100,000 50 ML MDV ONE; Meropenem 500 MG SDV ONE; Neostigmine Methylsulfate 1 MG/ML 5 ML Syringe ONE; Ondansetron 4 MG/2 ML SDV ONE; Propofol 200 MG/20 ML SDV ONE; Rocuronium 50 MG/5 ML Vial ONE; Succinylcholine 200 MG/10 ML MDV ONE; fentaNYL 250 MCG/5 ML SDV ONE
[2023-06-09] MEDS ORDERED: Lidocaine 1% 2 ML ONE (08:13)
[2023-06-09] MEDS ORDERED: Scopolamine 1.5 MG Transdermal Patch TOP ONE (08:30)
[2023-06-09] MEDS ORDERED: Celecoxib 200 MG Cap PO ONE (08:30)
[2023-06-09] MEDS ORDERED: Dextrose 5%-Lactated Ringers 1,000 ML IV SCH ×2 (08:30→14:15)
[2023-06-09] MEDS ORDERED: cefOXitin 2 GM in Sodium Chloride 0.9% 50 ML IV ONE (08:30)
[2023-06-09 08:31] LABS: HEMATOCRIT 35.3 % (34.3-46.0); HEMOGLOBIN 11.9 g/dL (11.2-15.5); MEAN CORPUSCULAR HEMOGLOBIN 32.9 pg (31.6-35.5); MEAN CORPUSCULAR HGB CONC 33.7 g/dL (31.6-35.5); MEAN CORPUSCULAR VOLUME 97.5 fL (81.4-99.0); RED BLOOD CELL COUNT 3.62 M/uL (3.77-5.24); WHITE BLOOD CELL COUNT,WBC 5.1 K/uL (3.2-11.0)
[2023-06-09 09:03] LABS: A/G RATIO 1.2 (1.2-2.2); ALANINE AMINOTRANSFERASE,ALT 30 U/L (12-78); ALBUMIN 3.5 g/dL (3.4-5.0); ALKALINE PHOSPHATASE 70 U/L (46-116); ANION GAP 9.4 mmol/L (5.0-14.0); ASPARTATE AMNIOTRANSFERASE,AST 22 U/L (15-37); BILIRUBIN TOTAL 0.3 mg/dL (0.2-1.0); BLOOD UREA NITROGEN,BUN 12 mg/dL (7-18); CALCIUM 8.2 mg/dL (8.5-10.1); CARBON DIOXIDE,CO2 28 mmol/L (21-32); CHLORIDE,CL 105 mmol/L (100-108); CREATININE 0.5 mg/dL (0.6-1.0); ESTIMATED GFR 117 mL/min (>60); FERRITIN 96 ng/ml (8-388); GLUCOSE RANDOM 89 mg/dL (74-106); MAGNESIUM 1.9 mg/dL (1.8-2.4); PHOSPHORUS 3.5 mg/dL (2.5-4.9); POTASSIUM,K 3.9 mmol/L (3.6-5.2); PROTEIN TOTAL,TP 6.4 g/dL (6.4-8.2); SODIUM,NA 142 mmol/L (140-148)
[2023-06-09] MEDS ORDERED: Naloxone 0.4 MG/ML SDV IVPUSH PRN ×2 (09:07→09:27)
[2023-06-09] MEDS ORDERED: HYDROmorphone/Normal Saline 6 MG/30 ML PCA Vial IV PRN (09:07)
[2023-06-09] MEDS ORDERED: diphenhydrAMINE 25 MG Cap PO PRN ×2 (09:07→09:27)
[2023-06-09] MEDS ORDERED: Ondansetron 4 MG/2 ML SDV IVPUSH PRN ×2 (09:07→09:27)
[2023-06-09] MEDS ORDERED: diphenhydrAMINE 50 MG/ML SDV IVPUSH PRN ×2 (09:07→09:27)
[2023-06-09] MEDS ORDERED: Ropivacaine 35 ML, dexAMETHasone 8 MG, EPINEPHrine 0.4 MG, Sodium Chloride 0.9% 42.6 ML NERVRT SCH ×4 (09:30)
[2023-06-09] MEDS ORDERED: fentaNYL/Normal Saline 600 MCG/30 ML PCA Vial IV SCH (09:30)
[2023-06-09] MEDS ORDERED: Ketamine 16 MG in Sodium Chloride 0.9% 19.84 ML IV SCH (09:30)
[2023-06-09] MEDS ORDERED: Ketamine 500 MG/5 ML MDV IV SCH (09:30)
[2023-06-09] MEDS ORDERED: Naloxone 0.4 MG/ML SDV IV PRN (10:00)
[2023-06-09] MEDS ORDERED: fentaNYL 250 MCG/5 ML SDV ONE ×2 (10:40→11:27)
[2023-06-09] MEDS ORDERED: Meropenem 500 MG SDV ONE (10:54)
[2023-06-09] MEDS ORDERED: Rocuronium 50 MG/5 ML Vial ONE (11:29)
[2023-06-09] MEDS ORDERED: Linezolid 600 MG/300 ML Premix Bag IRR ONE (11:34)
[2023-06-09] MEDS ORDERED: Labetalol 20 MG/4 ML Syringe ONE (11:36)
[2023-06-09] MEDS ORDERED: Lactated Ringers 1,000 ML ONE (11:37)
[2023-06-09] MEDS ORDERED: Ondansetron 4 MG/2 ML SDV IVPUSH ONE (13:37)
[2023-06-09] MEDS ORDERED: Labetalol 20 MG/4 ML Syringe IVPUSH PRN (15:00)
[2023-06-09] MEDS ORDERED: Metoclopramide 10 MG/2 ML SDV IVPUSH PRN (15:00)
[2023-06-09] MEDS: hydrOXYzine HCL 100 MG/2 ML SDV IM PRN ×2 (15:08→19:15)
[2023-06-09] MEDS: SCOPOLAMINE PATCH CHECK TOP SCH (15:34)
[2023-06-09] MEDS ORDERED: Pantoprazole 40 MG Vial IVPUSH SCH (16:00)
[2023-06-09] MEDS ORDERED: Acetaminophen 500 MG Tab PO PRN (16:00)
[2023-06-09] MEDS: cefOXitin 2 GM in Sodium Chloride 0.9% 50 ML IV SCH ×2 (16:21→21:12)
[2023-06-09] MEDS: MVI, Adult with Vitamin K 10 ML, Thiamine 200 MG, Zinc/Copper/Manganese/Selenium 1 ML i... IV SCH ×4 (16:23)
[2023-06-09] MEDS: diphenhydrAMINE 50 MG/ML SDV IVPUSH PRN ×2 (16:34→20:32)
[2023-06-09] MEDS: Cyclobenzaprine 10 MG Tab PO PRN (16:36)
[2023-06-09] MEDS: Acetaminophen 500 MG Tab PO SCH (20:31)
[2023-06-09] MEDS: buPROPion 150 MG Tab.SR PO SCH (20:31)
[2023-06-09] MEDS: ClonazePAM 1 MG Tab PO SCH (20:47)
[2023-06-09] MEDS: HYDROmorphone/Normal Saline 6 MG/30 ML PCA Vial IV PRN (20:47)
[2023-06-09] MEDS: Ondansetron 4 MG/2 ML SDV IVPUSH PRN (21:11)
[2023-06-10] MEDS: cefOXitin 2 GM in Sodium Chloride 0.9% 50 ML IV SCH ×4 (04:03→21:12)
[2023-06-10] MEDS: Acetaminophen 500 MG Tab PO SCH ×3 (04:04→19:15)
[2023-06-10] MEDS: diphenhydrAMINE 50 MG/ML SDV IVPUSH PRN ×3 (04:15→21:09)
[2023-06-10 05:01] LABS: BASOPHILS PERCENT AUTO 0.2 % (0.1-1.3); HEMATOCRIT 26.8 % (34.3-46.0); IMMATURE GRAN PERCENT AUTO 0.2 % (0.0-0.7); LYMPHOCYTES ABSOLUTE AUTO 0.86 K/uL (0.8-3.3); LYMPHOCYTES PERCENT AUTO 9.5 % (11.4-47.7); MEAN CORPUSCULAR HEMOGLOBIN 32.7 pg (31.6-35.5); MEAN CORPUSCULAR HGB CONC 33.6 g/dL (31.6-35.5); MEAN CORPUSCULAR VOLUME 97.5 fL (81.4-99.0); MONOCYTES PERCENT AUTO 12.2 % (3.3-12.6); NEUTROPHILS ABSOLUTE AUTO 7.03 K/uL (1.0-7.6); NEUTROPHILS PERCENT AUTO 77.9 % (40.0-78.1); PLATELET COUNT,PLT 218 K/uL (130-375); RED BLOOD CELL COUNT 2.75 M/uL (3.77-5.24)
[2023-06-10] MEDS: HYDROmorphone/Normal Saline 6 MG/30 ML PCA Vial IV PRN ×2 (05:16→14:59)
[2023-06-10 05:20] LABS: BASOPHILS ABSOLUTE AUTO 0.02 K/uL (0.00-0.10); IMMATURE GRAN ABSOLUTE AUTO 0.02 K/uL (0.00-0.23)
[2023-06-10 05:23] LABS: ALANINE AMINOTRANSFERASE,ALT 27 U/L (12-78); ALBUMIN 2.7 g/dL (3.4-5.0); ALKALINE PHOSPHATASE 55 U/L (46-116); ASPARTATE AMNIOTRANSFERASE,AST 23 U/L (15-37); BILIRUBIN TOTAL 0.3 mg/dL (0.2-1.0); BLOOD UREA NITROGEN,BUN 6 mg/dL (7-18); CALCIUM 7.8 mg/dL (8.5-10.1); CARBON DIOXIDE,CO2 27 mmol/L (21-32); CHLORIDE,CL 103 mmol/L (100-108); CREATININE 0.6 mg/dL (0.6-1.0); ESTIMATED GFR 112 mL/min (>60); GLUCOSE RANDOM 158 mg/dL (74-106); MAGNESIUM 1.5 mg/dL (1.8-2.4); PHOSPHORUS 3.2 mg/dL (2.5-4.9); POTASSIUM,K 4.2 mmol/L (3.6-5.2); PRO B-TYPE NATRIUR PEPT,BNPPRO 171 pg/mL (5-125); PROTEIN TOTAL,TP 5.3 g/dL (6.4-8.2); SODIUM,NA 138 mmol/L (140-148)
[2023-06-10 05:36] LABS: ANION GAP 12.2 mmol/L (5.0-14.0)
[2023-06-10] MEDS: SCOPOLAMINE PATCH CHECK TOP SCH (08:24)
[2023-06-10] MEDS: ClonazePAM 1 MG Tab PO SCH ×2 (08:24→20:09)
[2023-06-10] MEDS: TRULANCE 3 MG PO SCH (08:24)
[2023-06-10] MEDS: buPROPion 150 MG Tab.SR PO SCH ×2 (08:25→20:01)
[2023-06-10] MEDS ORDERED: Dextrose 5%-Lactated Ringers 1,000 ML IV SCH ×2 (08:30→17:15)
[2023-06-10] MEDS: Cyclobenzaprine 10 MG Tab PO PRN (09:13)
[2023-06-10] MEDS: Bisacodyl 5 MG Tab PO SCH ×2 (09:13→20:01)
[2023-06-10] MEDS: Docusate Sodium 100 MG Cap PO SCH ×2 (09:13→20:01)
[2023-06-10] MEDS: Magnesium Sulfate/Water 2 GM in Premix Bag 1 BAG IV SCH ×3 (09:59→21:56)
[2023-06-10] MEDS: Pantoprazole 40 MG Tab.CR PO SCH (11:50)
[2023-06-10] MEDS: hydrOXYzine HCL 100 MG/2 ML SDV IM PRN ×3 (11:57→23:49)
[2023-06-10] MEDS: MVI, Adult with Vitamin K 10 ML, Thiamine 200 MG, Zinc/Copper/Manganese/Selenium 1 ML i... IV SCH ×4 (15:38)
[2023-06-11] MEDS: diphenhydrAMINE 50 MG/ML SDV IVPUSH PRN ×2 (01:16→17:34)
[2023-06-11] MEDS: Cyclobenzaprine 10 MG Tab PO PRN ×3 (01:16→23:20)
[2023-06-11] MEDS: cefOXitin 2 GM in Sodium Chloride 0.9% 50 ML IV SCH ×2 (04:13→11:53)
[2023-06-11] MEDS: Magnesium Sulfate/Water 2 GM in Premix Bag 1 BAG IV SCH ×4 (04:14→22:35)
[2023-06-11] MEDS: Acetaminophen 500 MG Tab PO SCH ×3 (04:14→20:25)
[2023-06-11 04:41] LABS: HEMATOCRIT 22.7 % (34.3-46.0); HEMOGLOBIN 7.6 g/dL (11.2-15.5); MEAN CORPUSCULAR HEMOGLOBIN 33.2 pg (31.6-35.5); MEAN CORPUSCULAR HGB CONC 33.5 g/dL (31.6-35.5); MEAN CORPUSCULAR VOLUME 99.1 fL (81.4-99.0); RED BLOOD CELL COUNT 2.29 M/uL (3.77-5.24); WHITE BLOOD CELL COUNT,WBC 7.7 K/uL (3.2-11.0)
[2023-06-11 05:01] LABS: ALANINE AMINOTRANSFERASE,ALT 22 U/L (12-78); ALBUMIN 2.5 g/dL (3.4-5.0); ALKALINE PHOSPHATASE 56 U/L (46-116); ANION GAP 5.6 mmol/L (5.0-14.0); ASPARTATE AMNIOTRANSFERASE,AST 25 U/L (15-37); BILIRUBIN TOTAL 0.3 mg/dL (0.2-1.0); BLOOD UREA NITROGEN,BUN 5 mg/dL (7-18); CALCIUM 7.8 mg/dL (8.5-10.1); CARBON DIOXIDE,CO2 30 mmol/L (21-32); CHLORIDE,CL 104 mmol/L (100-108); CREATININE 0.5 mg/dL (0.6-1.0); EST CRCL DRUG DOSING (CG) 122.29 mL/min; ESTIMATED GFR 117 mL/min (>60); GLUCOSE RANDOM 108 mg/dL (74-106); PHOSPHORUS 2.8 mg/dL (2.5-4.9); POTASSIUM,K 3.6 mmol/L (3.6-5.2); SODIUM,NA 140 mmol/L (140-148)
[2023-06-11] MEDS: HYDROmorphone/Normal Saline 6 MG/30 ML PCA Vial IV PRN ×2 (05:05→13:07)
[2023-06-11] MEDS: Bisacodyl 5 MG Tab PO SCH ×2 (08:25→20:24)
[2023-06-11] MEDS: buPROPion 150 MG Tab.SR PO SCH ×2 (08:25→20:25)
[2023-06-11] MEDS: TRULANCE 3 MG PO SCH (08:25)
[2023-06-11] MEDS: Pantoprazole 40 MG Tab.CR PO SCH (08:25)
[2023-06-11] MEDS: Docusate Sodium 100 MG Cap PO SCH ×2 (08:25→20:26)
[2023-06-11] MEDS: SCOPOLAMINE PATCH CHECK TOP SCH (08:26)
[2023-06-11] MEDS ORDERED: Dextrose 5%-Lactated Ringers 1,000 ML IV SCH (08:30)
[2023-06-11] MEDS: ClonazePAM 1 MG Tab PO SCH ×2 (08:33→20:24)
[2023-06-11] MEDS ORDERED: Cyanocobalamin (Vitamin B12) 1,000 MCG/ML SDV IM ONE (09:00)
[2023-06-11] MEDS: hydrOXYzine HCL 100 MG/2 ML SDV IM PRN ×2 (12:30→17:33)
[2023-06-12] MEDS: hydrOXYzine HCL 100 MG/2 ML SDV IM PRN ×2 (02:50→08:48)
[2023-06-12] MEDS: Acetaminophen 500 MG Tab PO SCH ×4 (02:51→19:22)
[2023-06-12] MEDS: HYDROmorphone/Normal Saline 6 MG/30 ML PCA Vial IV PRN ×3 (03:13→23:29)
[2023-06-12 04:28] LABS: HEMATOCRIT 25.1 % (34.3-46.0); HEMOGLOBIN 8.5 g/dL (11.2-15.5); MEAN CORPUSCULAR HEMOGLOBIN 32.3 pg (31.6-35.5); MEAN CORPUSCULAR HGB CONC 33.9 g/dL (31.6-35.5); MEAN CORPUSCULAR VOLUME 95.4 fL (81.4-99.0); RED BLOOD CELL COUNT 2.63 M/uL (3.77-5.24); WHITE BLOOD CELL COUNT,WBC 5.4 K/uL (3.2-11.0)
[2023-06-12] MEDS: Magnesium Sulfate/Water 2 GM in Premix Bag 1 BAG IV SCH ×4 (04:31→21:00)
[2023-06-12 04:51] LABS: A/G RATIO 0.9 (1.2-2.2); ALANINE AMINOTRANSFERASE,ALT 27 U/L (12-78); ALBUMIN 2.4 g/dL (3.4-5.0); ALKALINE PHOSPHATASE 62 U/L (46-116); ASPARTATE AMNIOTRANSFERASE,AST 26 U/L (15-37); BILIRUBIN TOTAL 0.6 mg/dL (0.2-1.0); BLOOD UREA NITROGEN,BUN 4 mg/dL (7-18); CALCIUM 7.7 mg/dL (8.5-10.1); CARBON DIOXIDE,CO2 32 mmol/L (21-32); CHLORIDE,CL 103 mmol/L (100-108); CREATININE 0.5 mg/dL (0.6-1.0); EST CRCL DRUG DOSING (CG) 122.29 mL/min; ESTIMATED GFR 117 mL/min (>60); GLUCOSE RANDOM 109 mg/dL (74-106); MAGNESIUM 2.1 mg/dL (1.8-2.4); PHOSPHORUS 3.4 mg/dL (2.5-4.9); PROTEIN TOTAL,TP 5.2 g/dL (6.4-8.2); SODIUM,NA 139 mmol/L (140-148)
[2023-06-12] MEDS ORDERED: Potassium Phosphates 3 mMole/ML 15 ML SDV IV ONE (07:34)
[2023-06-12] MEDS: Bisacodyl 5 MG Tab PO SCH ×2 (08:20→20:57)
[2023-06-12] MEDS: buPROPion 150 MG Tab.SR PO SCH ×2 (08:20→20:56)
[2023-06-12] MEDS: Docusate Sodium 100 MG Cap PO SCH ×2 (08:20→20:56)
[2023-06-12] MEDS: TRULANCE 3 MG PO SCH (08:20)
[2023-06-12] MEDS: Pantoprazole 40 MG Tab.CR PO SCH (08:20)
[2023-06-12] MEDS: ClonazePAM 1 MG Tab PO SCH ×2 (08:45→20:56)
[2023-06-12] MEDS: diphenhydrAMINE 50 MG/ML SDV IVPUSH PRN (08:48)
[2023-06-12] MEDS ORDERED: Coagulation Factor VIIa Recombinant (per MCG) 2 MG Vial IVPUSH ONE (09:00)
[2023-06-12] MEDS: Potassium Phos in 0.9 % NaCl 15 MMOL in Premix Bag 1 BAG IV SCH ×6 (10:50→16:12)
[2023-06-12] MEDS: Cyclobenzaprine 10 MG Tab PO PRN (19:25)
[2023-06-13] MEDS: Calcium Carbonate 500 MG Tab.Chew PO PRN (00:03)
[2023-06-13] MEDS: diphenhydrAMINE 50 MG/ML SDV IVPUSH PRN (00:03)
[2023-06-13] MEDS: Acetaminophen 500 MG Tab PO SCH ×3 (04:10→19:08)
[2023-06-13] MEDS: Magnesium Sulfate/Water 2 GM in Premix Bag 1 BAG IV SCH (04:11)
[2023-06-13] MEDS: Cyclobenzaprine 10 MG Tab PO PRN (04:11)
[2023-06-13 04:16] LABS: HEMATOCRIT 27.1 % (34.3-46.0); HEMOGLOBIN 9.3 g/dL (11.2-15.5); MEAN CORPUSCULAR HEMOGLOBIN 32.4 pg (31.6-35.5); MEAN CORPUSCULAR HGB CONC 34.3 g/dL (31.6-35.5); MEAN CORPUSCULAR VOLUME 94.4 fL (81.4-99.0); RED BLOOD CELL COUNT 2.87 M/uL (3.77-5.24); WHITE BLOOD CELL COUNT,WBC 3.9 K/uL (3.2-11.0)
[2023-06-13 04:38] LABS: A/G RATIO 0.9 (1.2-2.2); ALANINE AMINOTRANSFERASE,ALT 26 U/L (12-78); ALBUMIN 2.4 g/dL (3.4-5.0); ALKALINE PHOSPHATASE 66 U/L (46-116); ANION GAP 6.5 mmol/L (5.0-14.0); ASPARTATE AMNIOTRANSFERASE,AST 27 U/L (15-37); BILIRUBIN TOTAL 0.6 mg/dL (0.2-1.0); BLOOD UREA NITROGEN,BUN 4 mg/dL (7-18); CALCIUM 7.9 mg/dL (8.5-10.1); CARBON DIOXIDE,CO2 31 mmol/L (21-32); CHLORIDE,CL 103 mmol/L (100-108); CREATININE 0.4 mg/dL (0.6-1.0); EST CRCL DRUG DOSING (CG) 152.86 mL/min; ESTIMATED GFR 124 mL/min (>60); GLUCOSE RANDOM 88 mg/dL (74-106); PHOSPHORUS 4.4 mg/dL (2.5-4.9); POTASSIUM,K 3.7 mmol/L (3.6-5.2); PROTEIN TOTAL,TP 5.2 g/dL (6.4-8.2); SODIUM,NA 140 mmol/L (140-148)
[2023-06-13] MEDS: buPROPion 150 MG Tab.SR PO SCH ×2 (08:23→20:32)
[2023-06-13] MEDS: Bisacodyl 5 MG Tab PO SCH ×2 (08:23→20:33)
[2023-06-13] MEDS: Docusate Sodium 100 MG Cap PO SCH ×2 (08:24→20:33)
[2023-06-13] MEDS: TRULANCE 3 MG PO SCH (08:24)
[2023-06-13] MEDS: Pantoprazole 40 MG Tab.CR PO SCH (08:24)
[2023-06-13] MEDS ORDERED: Furosemide 20 MG/2 ML VIAL IVPUSH ONE (08:30)
[2023-06-13] MEDS: ClonazePAM 1 MG Tab PO SCH ×2 (09:14→20:33)
[2023-06-13] MEDS: HYDROmorphone/Normal Saline 6 MG/30 ML PCA Vial IV PRN (11:41)
[2023-06-14] MEDS: HYDROmorphone/Normal Saline 6 MG/30 ML PCA Vial IV PRN ×3 (00:24→18:04)
[2023-06-14] MEDS: Acetaminophen 500 MG Tab PO SCH ×3 (04:04→19:50)
[2023-06-14 04:13] LABS: HEMATOCRIT 26.1 % (34.3-46.0); HEMOGLOBIN 8.8 g/dL (11.2-15.5); MEAN CORPUSCULAR HGB CONC 33.7 g/dL (31.6-35.5); MEAN CORPUSCULAR VOLUME 94.9 fL (81.4-99.0); RED BLOOD CELL COUNT 2.75 M/uL (3.77-5.24); WHITE BLOOD CELL COUNT,WBC 4.1 K/uL (3.2-11.0)
[2023-06-14 04:35] LABS: A/G RATIO 0.8 (1.2-2.2); ALANINE AMINOTRANSFERASE,ALT 24 U/L (12-78); ALBUMIN 2.1 g/dL (3.4-5.0); ALKALINE PHOSPHATASE 61 U/L (46-116); ANION GAP 5.1 mmol/L (5.0-14.0); ASPARTATE AMNIOTRANSFERASE,AST 24 U/L (15-37); BILIRUBIN TOTAL 0.5 mg/dL (0.2-1.0); BLOOD UREA NITROGEN,BUN 6 mg/dL (7-18); CALCIUM 7.7 mg/dL (8.5-10.1); CARBON DIOXIDE,CO2 32 mmol/L (21-32); CHLORIDE,CL 104 mmol/L (100-108); CREATININE 0.4 mg/dL (0.6-1.0); EST CRCL DRUG DOSING (CG) 152.86 mL/min; ESTIMATED GFR 124 mL/min (>60); GLUCOSE RANDOM 86 mg/dL (74-106); MAGNESIUM 1.5 mg/dL (1.8-2.4); PHOSPHORUS 3.9 mg/dL (2.5-4.9); POTASSIUM,K 3.7 mmol/L (3.6-5.2); PROTEIN TOTAL,TP 4.7 g/dL (6.4-8.2); SODIUM,NA 141 mmol/L (140-148)
[2023-06-14] MEDS: Pantoprazole 40 MG Tab.CR PO SCH (07:57)
[2023-06-14] MEDS: Albumin Human 25 GM in Premix Bag 1 BAG IV SCH ×2 (08:48→13:06)
[2023-06-14] MEDS: buPROPion 150 MG Tab.SR PO SCH ×2 (08:52→20:40)
[2023-06-14] MEDS: Docusate Sodium 100 MG Cap PO SCH ×2 (08:52→20:41)
[2023-06-14] MEDS: TRULANCE 3 MG PO SCH (08:52)
[2023-06-14] MEDS: Bisacodyl 5 MG Tab PO SCH ×2 (08:52→20:41)
[2023-06-14] MEDS: Furosemide 20 MG/2 ML VIAL IVPUSH SCH ×2 (08:55→17:11)
[2023-06-14] MEDS: ClonazePAM 1 MG Tab PO SCH ×2 (09:00→20:41)
[2023-06-14] MEDS: Magnesium Sulfate/Water 2 GM in Premix Bag 1 BAG IV SCH ×3 (11:11→23:24)
[2023-06-14] MEDS ORDERED: Albumin Human 25 GM in Premix Bag 1 BAG IV SCH (12:00)
[2023-06-14] MEDS: Calcium Carbonate 500 MG Tab.Chew PO PRN (13:04)
[2023-06-15] MEDS: Acetaminophen 500 MG Tab PO SCH ×3 (03:44→19:21)
[2023-06-15] MEDS: HYDROmorphone/Normal Saline 6 MG/30 ML PCA Vial IV PRN ×3 (03:51→18:21)
[2023-06-15 04:21] LABS: HEMOGLOBIN 8.4 g/dL (11.2-15.5); MEAN CORPUSCULAR HEMOGLOBIN 31.8 pg (31.6-35.5); MEAN CORPUSCULAR HGB CONC 33.6 g/dL (31.6-35.5); MEAN CORPUSCULAR VOLUME 94.7 fL (81.4-99.0); RED BLOOD CELL COUNT 2.64 M/uL (3.77-5.24); WHITE BLOOD CELL COUNT,WBC 5.1 K/uL (3.2-11.0)
[2023-06-15 04:50] LABS: ALANINE AMINOTRANSFERASE,ALT 19 U/L (12-78); ALBUMIN 2.6 g/dL (3.4-5.0); ALKALINE PHOSPHATASE 58 U/L (46-116); ASPARTATE AMNIOTRANSFERASE,AST 20 U/L (15-37); BILIRUBIN TOTAL 0.5 mg/dL (0.2-1.0); BLOOD UREA NITROGEN,BUN 9 mg/dL (7-18); CALCIUM 7.9 mg/dL (8.5-10.1); CARBON DIOXIDE,CO2 33 mmol/L (21-32); CHLORIDE,CL 102 mmol/L (100-108); CREATININE 0.5 mg/dL (0.6-1.0); EST CRCL DRUG DOSING (CG) 122.29 mL/min; ESTIMATED GFR 117 mL/min (>60); GLUCOSE RANDOM 96 mg/dL (74-106); PHOSPHORUS 3.9 mg/dL (2.5-4.9); POTASSIUM,K 3.6 mmol/L (3.6-5.2); PROTEIN TOTAL,TP 5.1 g/dL (6.4-8.2); SODIUM,NA 140 mmol/L (140-148)
[2023-06-15 05:20] LABS: ANION GAP 8.6 mmol/L (5.0-14.0)
[2023-06-15] MEDS: Magnesium Sulfate/Water 2 GM in Premix Bag 1 BAG IV SCH ×4 (05:23→23:08)
[2023-06-15] MEDS: Albumin Human 25 GM in Premix Bag 1 BAG IV SCH ×2 (07:42→16:44)
[2023-06-15] MEDS: Pantoprazole 40 MG Tab.CR PO SCH (07:43)
[2023-06-15] MEDS ORDERED: Furosemide 20 MG/2 ML VIAL IVPUSH ONE (09:00)
[2023-06-15] MEDS ORDERED: Potassium Chloride 20 MEQ Tab.ER PO ONE (09:00)
[2023-06-15] MEDS: Docusate Sodium 100 MG Cap PO SCH ×2 (09:42→21:15)
[2023-06-15] MEDS: TRULANCE 3 MG PO SCH (09:42)
[2023-06-15] MEDS: ClonazePAM 1 MG Tab PO SCH ×2 (09:42→21:14)
[2023-06-15] MEDS: Bisacodyl 5 MG Tab PO SCH ×2 (09:42→21:15)
[2023-06-15] MEDS: buPROPion 150 MG Tab.SR PO SCH ×2 (09:43→21:15)
[2023-06-15] MEDS: Ondansetron 4 MG/2 ML SDV IVPUSH PRN (14:45)
[2023-06-16] MEDS: Acetaminophen 500 MG Tab PO SCH ×3 (03:57→20:10)
[2023-06-16 04:20] LABS: HEMATOCRIT 25.8 % (34.3-46.0); HEMOGLOBIN 8.6 g/dL (11.2-15.5); MEAN CORPUSCULAR HEMOGLOBIN 32.2 pg (31.6-35.5); MEAN CORPUSCULAR HGB CONC 33.3 g/dL (31.6-35.5); MEAN CORPUSCULAR VOLUME 96.6 fL (81.4-99.0); RED BLOOD CELL COUNT 2.67 M/uL (3.77-5.24); WHITE BLOOD CELL COUNT,WBC 5.5 K/uL (3.2-11.0)
[2023-06-16 04:42] LABS: A/G RATIO 1.1 (1.2-2.2); ALANINE AMINOTRANSFERASE,ALT 21 U/L (12-78); ALBUMIN 2.9 g/dL (3.4-5.0); ALKALINE PHOSPHATASE 56 U/L (46-116); ANION GAP 7.2 mmol/L (5.0-14.0); ASPARTATE AMNIOTRANSFERASE,AST 16 U/L (15-37); BILIRUBIN TOTAL 0.7 mg/dL (0.2-1.0); BLOOD UREA NITROGEN,BUN 8 mg/dL (7-18); CALCIUM 8.2 mg/dL (8.5-10.1); CARBON DIOXIDE,CO2 31 mmol/L (21-32); CHLORIDE,CL 103 mmol/L (100-108); CREATININE 0.4 mg/dL (0.6-1.0); EST CRCL DRUG DOSING (CG) 152.86 mL/min; ESTIMATED GFR 124 mL/min (>60); GLUCOSE RANDOM 94 mg/dL (74-106); MAGNESIUM 2.5 mg/dL (1.8-2.4); PHOSPHORUS 4.1 mg/dL (2.5-4.9); POTASSIUM,K 3.8 mmol/L (3.6-5.2); PROTEIN TOTAL,TP 5.5 g/dL (6.4-8.2); SODIUM,NA 141 mmol/L (140-148)
[2023-06-16] MEDS: Magnesium Sulfate/Water 2 GM in Premix Bag 1 BAG IV SCH (05:23)
[2023-06-16] MEDS ORDERED: oxyCODONE 5 MG Tab PO PRN (07:27)
[2023-06-16] MEDS ORDERED: Ondansetron 4 MG Tab.DIS PO PRN (07:34)
[2023-06-16] MEDS: Albumin Human 25 GM in Premix Bag 1 BAG IV SCH ×2 (08:54→13:33)
[2023-06-16] MEDS: Docusate Sodium 100 MG Cap PO SCH ×2 (08:54→20:11)
[2023-06-16] MEDS: Bisacodyl 5 MG Tab PO SCH ×2 (08:55→20:11)
[2023-06-16] MEDS: Pantoprazole 40 MG Tab.CR PO SCH (08:55)
[2023-06-16] MEDS: TRULANCE 3 MG PO SCH (08:55)
[2023-06-16] MEDS: buPROPion 150 MG Tab.SR PO SCH ×2 (08:55→21:15)
[2023-06-16] MEDS: ClonazePAM 1 MG Tab PO SCH ×2 (08:59→20:09)
[2023-06-16] MEDS: oxyCODONE 5 MG Tab PO PRN ×3 (11:35→20:09)
[2023-06-16] MEDS: Cyclobenzaprine 10 MG Tab PO PRN ×2 (12:38→20:09)
[2023-06-17] MEDS: oxyCODONE 5 MG Tab PO PRN ×3 (00:27→08:41)
[2023-06-17] MEDS: Cyclobenzaprine 10 MG Tab PO PRN (04:28)
[2023-06-17] MEDS: Acetaminophen 500 MG Tab PO SCH (04:29)
[2023-06-17 05:48] VITALS: BP 102/54; PULSE 81
[2023-06-17] MEDS: ClonazePAM 1 MG Tab PO SCH (08:41)
[2023-06-17] MEDS: Pantoprazole 40 MG Tab.CR PO SCH (08:42)
[2023-06-17] MEDS: TRULANCE 3 MG PO SCH (08:42)
[2023-06-17] MEDS: buPROPion 150 MG Tab.SR PO SCH (08:42)
[2023-06-17] MEDS: Docusate Sodium 100 MG Cap PO SCH (08:43)
[2023-06-17] MEDS: Bisacodyl 5 MG Tab PO SCH (08:43)
== END 2023-06-17 09:10 | disposition home or self-care (01) | DRG 513 ==
LOC: JP.SDS 07:49 → JP.2SS 12:50 → JP.MS 06-13 16:57
PROVIDERS: ADMIT Surgery; ATTEND Surgery
PROC: 0UT90ZZ Resection of Uterus, Open Approach (ICD-10-PCS; principal; 2023-06-09)
PROC: 0UT70ZZ Resection of Bilateral Fallopian Tubes, Open Approach (ICD-10-PCS; 2023-06-09)
PROC: 0UT20ZZ Resection of Bilateral Ovaries, Open Approach (ICD-10-PCS; 2023-06-09)
PROC: 0WUF0JZ Supplement Abdominal Wall with Synthetic Substitute, Open Approach (ICD-10-PCS; 2023-06-09)
PROC: 0DBW0ZX Excision of Peritoneum, Open Approach, Diagnostic (ICD-10-PCS; 2023-06-09)
DX: N83.202 Unspecified ovarian cyst, left side (principal); N70.11 Chronic salpingitis; K43.0 Incisional hernia with obstruction, without gangrene; D64.9 Anemia, unspecified; L76.32 Postprocedural hematoma of skin and subcutaneous tissue following other procedure; E66.9 Obesity, unspecified; E87.6 Hypokalemia; Z79.899 Other long term (current) drug therapy; Z98.890 Other specified postprocedural states; Z68.26 Body mass index [BMI] 26.0-26.9, adult
CPT/HCPCS: 36415; 36430; 80053; 82728; 83735; 83880; 84100; 84703; 85018; 85025; 85027; 86304; 86850; 86900; 86901; 86920; 86922; 88112; 88302; 88305; 88307; A9270-GY; C1713; C1751; C1781; C9113; J0131; J0171; J0330; J0456; J0694; J1100; J1170; J1200; J1940; J2020; J2185; J2405; J2704; J2710; J2795; J3010; J3410; J3411; J3420; J3475; J3490; J7120; J7121; J7189; P9016; P9047

== ENCOUNTER 2024-01-12 14:41 | Emergency (ER) | payer BC ==
[2024-01-12 15:54] LABS: BASOPHILS ABSOLUTE AUTO 0.02 K/uL (0.00-0.10); BASOPHILS PERCENT AUTO 0.3 % (0.1-1.3); HEMATOCRIT 34.8 % (34.3-46.0); HEMOGLOBIN 11.8 g/dL (11.2-15.5); IMMATURE GRAN ABSOLUTE AUTO 0.02 K/uL (0.00-0.23); IMMATURE GRAN PERCENT AUTO 0.3 % (0.0-0.7); LYMPHOCYTES ABSOLUTE AUTO 0.84 K/uL (0.8-3.3); LYMPHOCYTES PERCENT AUTO 13.6 % (11.4-47.7); MEAN CORPUSCULAR HEMOGLOBIN 34.9 pg (31.6-35.5); MEAN CORPUSCULAR HGB CONC 33.9 g/dL (31.6-35.5); MONOCYTES ABSOLUTE AUTO 0.53 K/uL (0.20-0.90); MONOCYTES PERCENT AUTO 8.6 % (3.3-12.6); NEUTROPHILS ABSOLUTE AUTO 4.76 K/uL (1.0-7.6); NEUTROPHILS PERCENT AUTO 77.2 % (40.0-78.1); PLATELET COUNT,PLT 216 K/uL (130-375); RED BLOOD CELL COUNT 3.38 M/uL (3.77-5.24); WHITE BLOOD CELL COUNT,WBC 6.2 K/uL (3.2-11.0)
[2024-01-12 16:13] LABS: INR 1.4; PROTHROMBIN TIME 13.9 sec (9.2-10.6); PTT,PARTIAL THROMBOPLSTIN TIME 31.5 sec (21.8-27.3)
[2024-01-12] MEDS: Sodium Chloride 0.9% 50 ML IV SCH (16:22)
[2024-01-12] MEDS: Iopamidol 612 MG/ML 100 ML Bottle IV SCH (16:22)
[2024-01-12 16:25] LABS: A/G RATIO 0.6 (1.2-2.2); ALANINE AMINOTRANSFERASE,ALT 34 U/L (12-78); ALBUMIN 1.9 g/dL (3.4-5.0); ALKALINE PHOSPHATASE 151 U/L (46-116); AMYLASE 3 U/L (25-115); ANION GAP 11.2 mmol/L (5.0-14.0); ASPARTATE AMNIOTRANSFERASE,AST 28 U/L (15-37); BILIRUBIN TOTAL 0.8 mg/dL (0.2-1.0); BLOOD UREA NITROGEN,BUN 11 mg/dL (7-18); C-REACTIVE PROTEIN 5.38 mg/dL (<0.50); CALCIUM 7.9 mg/dL (8.5-10.1); CARBON DIOXIDE,CO2 30 mmol/L (21-32); CHLORIDE,CL 105 mmol/L (100-108); CREATININE 0.8 mg/dL (0.6-1.0); EST CRCL DRUG DOSING (CG) 72.21 mL/min; ESTIMATED GFR 91 mL/min (>60); GLUCOSE RANDOM 91 mg/dL (74-106); MAGNESIUM 1.5 mg/dL (1.8-2.4); PHOSPHORUS 4.8 mg/dL (2.5-4.9); POTASSIUM,K 3.2 mmol/L (3.6-5.2); SODIUM,NA 143 mmol/L (140-148); TROPONIN I HIGH SENSITIVITY < 4.0 pg/mL (<=60.3); TSH ULTRASENSITIVE 1.932 uIU/mL (0.358-3.740)
[2024-01-12 16:26] LABS: LIPASE < 6.0 U/L (16.0-77.0)
[2024-01-12 17:14] VITALS: BP 111/73; PULSE 97
[2024-01-12 19:05] LABS: APPEARANCE,URINE SLIGHTLY CLOUDY (CLEAR); BILIRUBIN,URINE NEGATIVE (NEGATIVE); COLOR,URINE YELLOW (YELLOW); GLUCOSE,URINE NEGATIVE (NEGATIVE); KETONES,URINE NEGATIVE (NEGATIVE); LEUKOCYTE ESTERASE,URINE NEGATIVE (NEGATIVE); NITRITE,URINE NEGATIVE (NEGATIVE); OCCULT BLOOD,URINE NEGATIVE (NEGATIVE); PH,URINE 6.5 (5.0-8.0); PROTEIN,URINE NEGATIVE (NEGATIVE); UROBILINOGEN,URINE 0.2 EU/dL (0.2-1.0)
[2024-01-12 19:08] LABS: AMPHETAMINES SCREEN, URINE NEGATIVE (NEGATIVE); BARBITURATE SCREEN,URINE NEGATIVE (NEGATIVE); BENZODIAZEPINES SCREEN,URINE PRESUMPTIVE POSITIVE (NEGATIVE); METHADONE SCREEN, URINE NEGATIVE (NEGATIVE); METHAMPHETAMINES SCREEN, URINE NEGATIVE (NEGATIVE); OXYCODONE SCREEN,URINE NEGATIVE (NEGATIVE); PROPOXYPHENE SCREEN,URINE NEGATIVE (NEGATIVE); THC SCREEN,URINE 50 NG/ML NEGATIVE (NEGATIVE)
[2024-01-12 19:11] LABS: AMORPHOUS SEDIMENT,URINE NOT SEEN; BACTERIA,URINE RARE; EPITHELIAL CELLS,URINE MODERATE; MUCUS,URINE RARE; RBC,URINE 0-5 (0-5); WBC,URINE 0-5 (0-5)
== END 2024-01-12 19:08 | disposition left against medical advice (07) ==
LOC: JP.ED 14:41
DX: E87.6 Hypokalemia (principal); E83.42 Hypomagnesemia; E88.09 Other disorders of plasma-protein metabolism, not elsewhere classified; R19.5 Other fecal abnormalities; K21.9 Gastro-esophageal reflux disease without esophagitis; Z79.899 Other long term (current) drug therapy; Z90.710 Acquired absence of both cervix and uterus; Z88.8 Allergy status to other drugs, medicaments and biological substances; Z91.048 Other nonmedicinal substance allergy status; Z88.6 Allergy status to analgesic agent; Z90.49 Acquired absence of other specified parts of digestive tract
CPT/HCPCS: 36415; 70450; 71046; 74177; 74240; 80053; 80305; 81001; 82150; 82550; 83605; 83690; 83735; 84100; 84134; 84443; 84484; 85025; 85379; 85610; 85730; 86140; 93005; 99285; J3490; Q9967

== ENCOUNTER 2024-01-13 16:12 | Inpatient (IN) | payer BC ==
[2024-01-13] MEDS ORDERED: Sodium Chloride 0.9% 10 ML Syringe FLUSH PRN (16:36)
[2024-01-13] MEDS ORDERED: Acetaminophen 650 MG Supp RECTAL PRN (16:37)
[2024-01-13] MEDS ORDERED: Dextrose 5%-Lactated Ringers 1,000 ML IV SCH (16:45)
[2024-01-13] MEDS ORDERED: MVI, Adult with Vitamin K 10 ML in Lactated Ringers 1,000 ML IV ONE (17:00)
[2024-01-13] MEDS: Pantoprazole 40 MG Tab.CR PO SCH (17:43)
[2024-01-13] MEDS: MVI, Adult with Vitamin K 10 ML in Lactated Ringers 1,000 ML IV ONE (17:44)
[2024-01-13 18:24] LABS: CORONAVIRUS COVID-19 NAA NEGATIVE (NEGATIVE); INFLUENZA A NAA NEGATIVE (NEGATIVE); INFLUENZA B NAA NEGATIVE (NEGATIVE); RESPIRATORY SYNCYTIAL VIR NAA NEGATIVE (NEGATIVE)
[2024-01-13] MEDS: Folic Acid 50 MG/10 ML MDV IVPUSH ONE (20:10)
[2024-01-13] MEDS: Thiamine 200 MG/2 ML MDV IVPUSH ONE (20:10)
[2024-01-13] MEDS: Thiamine 100 MG in Sodium Chloride 0.9% 100 ML IV SCH (20:14)
[2024-01-13] MEDS: Folic Acid 1 MG in Sodium Chloride 0.9% 50 ML IV SCH (20:14)
[2024-01-13] MEDS: Amitriptyline 25 MG Tab PO SCH (20:38)
[2024-01-13 21:19] LABS: AMPHETAMINES SCREEN, URINE NEGATIVE (NEGATIVE); BARBITURATE SCREEN,URINE NEGATIVE (NEGATIVE); BENZODIAZEPINES SCREEN,URINE PRESUMPTIVE POSITIVE (NEGATIVE); METHADONE SCREEN, URINE NEGATIVE (NEGATIVE); METHAMPHETAMINES SCREEN, URINE NEGATIVE (NEGATIVE); OXYCODONE SCREEN,URINE NEGATIVE (NEGATIVE); PROPOXYPHENE SCREEN,URINE NEGATIVE (NEGATIVE); THC SCREEN,URINE 50 NG/ML NEGATIVE (NEGATIVE)
[2024-01-14] MEDS: Dextrose 5%-Lactated Ringers 1,000 ML IV SCH (00:35)
[2024-01-14] MEDS: Ondansetron 4 MG/2 ML SDV IVPUSH PRN ×2 (00:38→15:11)
[2024-01-14 06:23] LABS: BASOPHILS ABSOLUTE AUTO 0.03 K/uL (0.00-0.10); BASOPHILS PERCENT AUTO 0.6 % (0.1-1.3); EOSINOPHILS ABSOLUTE AUTO 0.04 K/uL (0.00-0.40); EOSINOPHILS PERCENT AUTO 0.8 % (0.0-5.4); HEMOGLOBIN 9.8 g/dL (11.2-15.5); IMMATURE GRAN ABSOLUTE AUTO 0.03 K/uL (0.00-0.23); IMMATURE GRAN PERCENT AUTO 0.6 % (0.0-0.7); LYMPHOCYTES ABSOLUTE AUTO 1.39 K/uL (0.8-3.3); LYMPHOCYTES PERCENT AUTO 28.1 % (11.4-47.7); MEAN CORPUSCULAR HEMOGLOBIN 33.9 pg (31.6-35.5); MEAN CORPUSCULAR HGB CONC 32.7 g/dL (31.6-35.5); MEAN CORPUSCULAR VOLUME 103.8 fL (81.4-99.0); MONOCYTES ABSOLUTE AUTO 0.69 K/uL (0.20-0.90); MONOCYTES PERCENT AUTO 13.9 % (3.3-12.6); NEUTROPHILS ABSOLUTE AUTO 2.77 K/uL (1.0-7.6); PLATELET COUNT,PLT 193 K/uL (130-375); RED BLOOD CELL COUNT 2.89 M/uL (3.77-5.24)
[2024-01-14 07:06] LABS: A/G RATIO 0.5 (1.2-2.2); ALANINE AMINOTRANSFERASE,ALT 31 U/L (12-78); ALBUMIN 1.5 g/dL (3.4-5.0); ALKALINE PHOSPHATASE 132 U/L (46-116); ASPARTATE AMNIOTRANSFERASE,AST 45 U/L (15-37); BILIRUBIN TOTAL 0.6 mg/dL (0.2-1.0); BLOOD UREA NITROGEN,BUN 10 mg/dL (7-18); CALCIUM 7.2 mg/dL (8.5-10.1); CARBON DIOXIDE,CO2 27 mmol/L (21-32); CHLORIDE,CL 106 mmol/L (100-108); CREATININE 0.6 mg/dL (0.6-1.0); EST CRCL DRUG DOSING (CG) 97.94 mL/min; ESTIMATED GFR 111 mL/min (>60); FERRITIN 266 ng/ml (8-388); GLUCOSE RANDOM 87 mg/dL (74-106); MAGNESIUM 1.3 mg/dL (1.8-2.4); PHOSPHORUS 2.7 mg/dL (2.5-4.9); POTASSIUM,K 3.6 mmol/L (3.6-5.2); PROTEIN TOTAL,TP 4.3 g/dL (6.4-8.2); SODIUM,NA 139 mmol/L (140-148)
[2024-01-14 07:14] LABS: ANION GAP 9.6 mmol/L (5.0-14.0); FOLIC ACID > 20.0 ng/ml (8.6-58.9)
[2024-01-14 08:12] LABS: HEMOGLOBIN A1C < 4.5 % (4.5-6.2)
[2024-01-14] MEDS: Estradiol 0.5 MG Tab PO SCH (08:48)
[2024-01-14] MEDS ORDERED: Sennosides/Docusate Sodium 50-8.6 MG Tab PO PRN (09:19)
[2024-01-14] MEDS: TRULANCE 3 MG PO SCH (10:55)
[2024-01-14] MEDS: Scopalamine 1mg/3day Transdermal Patch TRDERM SCH (11:11)
[2024-01-14] MEDS: Magnesium Sulfate/Water 2 GM in Premix Bag 1 BAG IV ONE (11:51)
[2024-01-14] MEDS: 1: AA 5%/Calcium/D15W/Lytes 1,000 ML with MVI, Adult with Vitamin K 10 ML, Zinc/Copper/M IV SCH (14:17)
[2024-01-14 15:14] LABS: HEMATOCRIT 27.4 % (34.3-46.0); MEAN CORPUSCULAR HGB CONC 32.8 g/dL (31.6-35.5); MEAN CORPUSCULAR VOLUME 103.4 fL (81.4-99.0); RED BLOOD CELL COUNT 2.65 M/uL (3.77-5.24); WHITE BLOOD CELL COUNT,WBC 5.4 K/uL (3.2-11.0)
[2024-01-14 15:33] LABS: INR 1.3; PROTHROMBIN TIME 13.4 sec (9.2-10.6)
[2024-01-14] MEDS: Fat Emulsion 100 ML IV SCH (16:20)
[2024-01-14] MEDS: Diazepam 2 MG Tab PO PRN (22:16)
[2024-01-15 04:30] LABS: HEMOGLOBIN 8.2 g/dL (11.2-15.5); MEAN CORPUSCULAR HEMOGLOBIN 34.2 pg (31.6-35.5); MEAN CORPUSCULAR HGB CONC 32.8 g/dL (31.6-35.5); MEAN CORPUSCULAR VOLUME 104.2 fL (81.4-99.0); RED BLOOD CELL COUNT 2.4 M/uL (3.77-5.24); WHITE BLOOD CELL COUNT,WBC 4.9 K/uL (3.2-11.0)
[2024-01-15 04:52] LABS: CALCIUM 7.1 mg/dL (8.5-10.1); CREATININE 0.5 mg/dL (0.6-1.0); EST CRCL DRUG DOSING (CG) 117.53 mL/min; MAGNESIUM 1.6 mg/dL (1.8-2.4); PHOSPHORUS 2.8 mg/dL (2.5-4.9)
[2024-01-15 04:59] LABS: ANION GAP 7.8 mmol/L (5.0-14.0); POTASSIUM,K 2.8 mmol/L (3.6-5.2)
[2024-01-15] MEDS: Potassium Chloride 10 MEQ in Premix Bag 1 BAG IV SCH ×2 (05:38→18:19)
[2024-01-15] MEDS: Magnesium Sulfate/Water 2 GM in Premix Bag 1 BAG IV ONE (09:14)
[2024-01-15] MEDS: SCOPOLAMINE PATCH CHECK TOP SCH (10:01)
[2024-01-15] MEDS: Magnesium Sulfate/Water 2 GM in Premix Bag 1 BAG IV SCH (15:20)
[2024-01-15] MEDS: Acetaminophen 325 MG Tab PO PRN (16:15)
[2024-01-15 16:24] LABS: ANION GAP 6.3 mmol/L (5.0-14.0); CALCIUM 7.1 mg/dL (8.5-10.1); CREATININE 0.4 mg/dL (0.6-1.0); EST CRCL DRUG DOSING (CG) 151.23 mL/min; MAGNESIUM 1.7 mg/dL (1.8-2.4); PHOSPHORUS 3.1 mg/dL (2.5-4.9); POTASSIUM,K 3.3 mmol/L (3.6-5.2)
[2024-01-15] MEDS: Enoxaparin 40 MG/0.4 ML Syringe SUBCUT SCH ×2 (20:39→20:41)
[2024-01-15] MEDS ORDERED: Enoxaparin 40 MG/0.4 ML Syringe SUBCUT SCH (21:00)
[2024-01-16 04:05] LABS: HEMATOCRIT 22.7 % (34.3-46.0); HEMOGLOBIN 7.4 g/dL (11.2-15.5); MEAN CORPUSCULAR HEMOGLOBIN 34.4 pg (31.6-35.5); MEAN CORPUSCULAR HGB CONC 32.6 g/dL (31.6-35.5); MEAN CORPUSCULAR VOLUME 105.6 fL (81.4-99.0); RED BLOOD CELL COUNT 2.15 M/uL (3.77-5.24); WHITE BLOOD CELL COUNT,WBC 4.5 K/uL (3.2-11.0)
[2024-01-16 04:26] LABS: CREATININE 0.4 mg/dL (0.6-1.0); EST CRCL DRUG DOSING (CG) 151.23 mL/min; MAGNESIUM 1.9 mg/dL (1.8-2.4); PHOSPHORUS 2.9 mg/dL (2.5-4.9); POTASSIUM,K 3.7 mmol/L (3.6-5.2)
[2024-01-16 05:10] LABS: ANION GAP 7.7 mmol/L (5.0-14.0)
[2024-01-16] MEDS: Thiamine 100 MG in Sodium Chloride 0.9% 100 ML IV SCH (10:51)
[2024-01-16] MEDS: Folic Acid 1 MG in Sodium Chloride 0.9% 50 ML IV SCH (11:56)
[2024-01-16 16:06] LABS: HEMOGLOBIN 7.6 g/dL (11.2-15.5); MEAN CORPUSCULAR HEMOGLOBIN 33.8 pg (31.6-35.5); MEAN CORPUSCULAR HGB CONC 31.7 g/dL (31.6-35.5); MEAN CORPUSCULAR VOLUME 106.7 fL (81.4-99.0); RED BLOOD CELL COUNT 2.25 M/uL (3.77-5.24); WHITE BLOOD CELL COUNT,WBC 5.5 K/uL (3.2-11.0)
[2024-01-16 16:19] LABS: PROTHROMBIN TIME 10.4 sec (9.2-10.6)
[2024-01-16 16:21] LABS: CALCIUM 7.4 mg/dL (8.5-10.1); CREATININE 0.3 mg/dL (0.6-1.0); EST CRCL DRUG DOSING (CG) 201.64 mL/min; MAGNESIUM 1.5 mg/dL (1.8-2.4); PHOSPHORUS 3.5 mg/dL (2.5-4.9); POTASSIUM,K 3.9 mmol/L (3.6-5.2)
[2024-01-16 16:22] LABS: ANION GAP 8.9 mmol/L (5.0-14.0)
[2024-01-16 16:33] LABS: IRON,FE 45 ug/dL (50-170); PERCENT FE SATURATION 188 % (20-55); TOTAL IRON BINDING CAPACITY 24 ug/dl (250-450)
[2024-01-16] MEDS: 1: AA 5%/Calcium/D15W/Lytes 1,000 ML with MVI, Adult with Vitamin K 10 ML, Zinc/Copper/M IV SCH (18:37)
[2024-01-16] MEDS: Enoxaparin 40 MG/0.4 ML Syringe SUBCUT ONE (18:39)
[2024-01-16] MEDS: Magnesium Sulfate/Water 2 GM in Premix Bag 1 BAG IV ONE (18:42)
[2024-01-16] MEDS ORDERED: Enoxaparin 40 MG/0.4 ML Syringe SUBCUT ONE (20:00)
[2024-01-16] MEDS: busPIRone 5 MG Tab PO PRN (21:00)
[2024-01-16] MEDS ORDERED: QUETIAPINE 300 MG PO SCH (21:00)
[2024-01-16] MEDS: QUEtiapine 100 MG Tab PO SCH (21:00)
[2024-01-17 00:07] LABS: ZINC,SERUM/PLASMA 33.8 ug/dL (60.0-120.0)
[2024-01-17 04:08] LABS: MEAN CORPUSCULAR HEMOGLOBIN 33.7 pg (31.6-35.5); MEAN CORPUSCULAR HGB CONC 31.8 g/dL (31.6-35.5); MEAN CORPUSCULAR VOLUME 105.8 fL (81.4-99.0); RED BLOOD CELL COUNT 2.08 M/uL (3.77-5.24); WHITE BLOOD CELL COUNT,WBC 5.4 K/uL (3.2-11.0)
[2024-01-17 04:27] LABS: CALCIUM 7.5 mg/dL (8.5-10.1); CREATININE 0.3 mg/dL (0.6-1.0); EST CRCL DRUG DOSING (CG) 201.64 mL/min; MAGNESIUM 1.7 mg/dL (1.8-2.4); PHOSPHORUS 3.6 mg/dL (2.5-4.9); POTASSIUM,K 3.6 mmol/L (3.6-5.2)
[2024-01-17 05:09] LABS: ANION GAP 7.6 mmol/L (5.0-14.0)
[2024-01-17] MEDS: Sodium Chloride 0.9% 1,000 ML IV SCH (06:12)
[2024-01-17] MEDS: Magnesium Sulfate/Water 2 GM in Premix Bag 1 BAG IV ONE (07:43)
[2024-01-17] MEDS: Prochlorperazine 10 MG/2 ML SDV IVPUSH PRN (08:46)
[2024-01-17 10:17] LABS: CORONAVIRUS COVID-19 NAA NEGATIVE (NEGATIVE); INFLUENZA A NAA NEGATIVE (NEGATIVE); INFLUENZA B NAA NEGATIVE (NEGATIVE); RESPIRATORY SYNCYTIAL VIR NAA NEGATIVE (NEGATIVE)
[2024-01-17 11:38] LABS: APPEARANCE,URINE CLEAR (CLEAR); BILIRUBIN,URINE NEGATIVE (NEGATIVE); COLOR,URINE YELLOW (YELLOW); GLUCOSE,URINE NEGATIVE (NEGATIVE); KETONES,URINE NEGATIVE (NEGATIVE); LEUKOCYTE ESTERASE,URINE NEGATIVE (NEGATIVE); NITRITE,URINE NEGATIVE (NEGATIVE); OCCULT BLOOD,URINE NEGATIVE (NEGATIVE); PROTEIN,URINE NEGATIVE (NEGATIVE); UROBILINOGEN,URINE 0.2 EU/dL (0.2-1.0)
[2024-01-17 11:44] LABS: AMPHETAMINES SCREEN, URINE NEGATIVE (NEGATIVE); BARBITURATE SCREEN,URINE NEGATIVE (NEGATIVE); BENZODIAZEPINES SCREEN,URINE POSITIVE (NEGATIVE); METHADONE SCREEN, URINE NEGATIVE (NEGATIVE); METHAMPHETAMINES SCREEN, URINE NEGATIVE (NEGATIVE); OXYCODONE SCREEN,URINE NEGATIVE (NEGATIVE); PROPOXYPHENE SCREEN,URINE NEGATIVE (NEGATIVE); THC SCREEN,URINE 50 NG/ML NEGATIVE (NEGATIVE)
[2024-01-17 11:45] LABS: RBC,URINE NOT SEEN (0-5); WBC,URINE NOT SEEN (0-5)
[2024-01-17 16:08] LABS: HEMATOCRIT 25.8 % (34.3-46.0); HEMOGLOBIN 8.5 g/dL (11.2-15.5); MEAN CORPUSCULAR HEMOGLOBIN 33.6 pg (31.6-35.5); MEAN CORPUSCULAR HGB CONC 32.9 g/dL (31.6-35.5); RED BLOOD CELL COUNT 2.53 M/uL (3.77-5.24); WHITE BLOOD CELL COUNT,WBC 7.1 K/uL (3.2-11.0)
[2024-01-17 16:23] LABS: CALCIUM 7.8 mg/dL (8.5-10.1); CREATININE 0.4 mg/dL (0.6-1.0); EST CRCL DRUG DOSING (CG) 151.23 mL/min; MAGNESIUM 1.8 mg/dL (1.8-2.4); POTASSIUM,K 3.7 mmol/L (3.6-5.2)
[2024-01-17 16:24] LABS: ANION GAP 9.7 mmol/L (5.0-14.0)
[2024-01-17 17:50] LABS: VITAMIN A (RETINOL) 0.11 mg/L (0.30-1.20); VITAMIN A (RETINYL PALMITATE) 0.05 mg/L (0.00-0.10); VITAMIN E (ALPHA-TOCOPHEROL) 4.5 mg/L (5.5-18.0); VITAMIN E (GAMMA-TOCOPHEROL) 0.2 mg/L (0.0-6.0)
[2024-01-17] MEDS: Amitriptyline 25 MG Tab PO SCH (20:50)
[2024-01-17] MEDS: Enoxaparin 40 MG/0.4 ML Syringe SUBCUT SCH (20:50)
[2024-01-18 04:01] LABS: HEMATOCRIT 23.9 % (34.3-46.0); HEMOGLOBIN 7.8 g/dL (11.2-15.5); MEAN CORPUSCULAR HEMOGLOBIN 33.5 pg (31.6-35.5); MEAN CORPUSCULAR HGB CONC 32.6 g/dL (31.6-35.5); MEAN CORPUSCULAR VOLUME 102.6 fL (81.4-99.0); RED BLOOD CELL COUNT 2.33 M/uL (3.77-5.24); WHITE BLOOD CELL COUNT,WBC 4.7 K/uL (3.2-11.0)
[2024-01-18 04:21] LABS: A/G RATIO 0.4 (1.2-2.2); ALANINE AMINOTRANSFERASE,ALT 24 U/L (12-78); ALBUMIN 1.2 g/dL (3.4-5.0); ALKALINE PHOSPHATASE 82 U/L (46-116); ASPARTATE AMNIOTRANSFERASE,AST 19 U/L (15-37); BILIRUBIN TOTAL 0.2 mg/dL (0.2-1.0); BLOOD UREA NITROGEN,BUN 8 mg/dL (7-18); CALCIUM 7.6 mg/dL (8.5-10.1); CARBON DIOXIDE,CO2 32 mmol/L (21-32); CHLORIDE,CL 112 mmol/L (100-108); CREATININE 0.4 mg/dL (0.6-1.0); EST CRCL DRUG DOSING (CG) 151.23 mL/min; ESTIMATED GFR 123 mL/min (>60); GLUCOSE RANDOM 98 mg/dL (74-106); MAGNESIUM 1.6 mg/dL (1.8-2.4); PHOSPHORUS 3.4 mg/dL (2.5-4.9); POTASSIUM,K 3.5 mmol/L (3.6-5.2); PROTEIN TOTAL,TP 3.9 g/dL (6.4-8.2); SODIUM,NA 148 mmol/L (140-148)
[2024-01-18 05:06] LABS: ANION GAP 7.5 mmol/L (5.0-14.0)
[2024-01-18] MEDS ORDERED: Fat Emulsion 100 ML IV SCH (08:15)
[2024-01-18] MEDS ORDERED: Central Total Parenteral Nutrition Bag SCH (08:15)
[2024-01-18] MEDS: Albumin Human 25 GM in Premix Bag 1 BAG IV SCH ×2 (08:51→14:16)
[2024-01-18] MEDS: Potassium Chloride 20 MEQ in Premix Bag 1 BAG IV ONE (09:00)
[2024-01-18] MEDS: Magnesium Sulfate/Water 2 GM/50 ML BAG IV SCH (11:26)
[2024-01-18 12:15] LABS: COPPER,SERUM/PLASMA 30.4 ug/dL (80.0-155.0)
[2024-01-18] MEDS: 1: AA 5%/Calcium/D15W/Lytes 1,000 ML with MVI, Adult with Vitamin K 10 ML, Zinc/Copper/M IV SCH (12:20)
[2024-01-18] MEDS: Enoxaparin 60 MG/0.6 ML Syringe SUBCUT ONE (19:34)
[2024-01-18 19:45] LABS: VITAMIN C, PLASMA 17 umol/L (23-114)
[2024-01-18 19:52] LABS: VITAMIN K1 3.49 nmol/L (0.22-4.88)
[2024-01-19 04:34] LABS: HEMATOCRIT 28.6 % (34.3-46.0); HEMOGLOBIN 9.2 g/dL (11.2-15.5); MEAN CORPUSCULAR HEMOGLOBIN 32.4 pg (31.6-35.5); MEAN CORPUSCULAR HGB CONC 32.2 g/dL (31.6-35.5); MEAN CORPUSCULAR VOLUME 100.7 fL (81.4-99.0); RED BLOOD CELL COUNT 2.84 M/uL (3.77-5.24); WHITE BLOOD CELL COUNT,WBC 4.9 K/uL (3.2-11.0)
[2024-01-19 05:17] LABS: CALCIUM 8.1 mg/dL (8.5-10.1); CREATININE 0.3 mg/dL (0.6-1.0); EST CRCL DRUG DOSING (CG) 201.64 mL/min; MAGNESIUM 2.3 mg/dL (1.8-2.4); PHOSPHORUS 3.5 mg/dL (2.5-4.9); POTASSIUM,K 3.5 mmol/L (3.6-5.2)
[2024-01-19 05:22] LABS: ANION GAP 10.5 mmol/L (5.0-14.0)
[2024-01-19] MEDS ORDERED: Propofol 200 MG/20 ML SDV ONE (07:21)
[2024-01-19] MEDS ORDERED: fentaNYL 100 MCG/2 ML SDV ONE (07:22)
[2024-01-19] MEDS ORDERED: Midazolam 1 MG/ML 2 ML SDV ONE (07:22)
[2024-01-19] MEDS ORDERED: Central Total Parenteral Nutrition Bag SCH (08:15)
[2024-01-19] MEDS: Thiamine 100 MG Tab PO SCH (11:26)
[2024-01-19] MEDS: Folic Acid 1 MG Tab PO SCH (11:26)
[2024-01-19] MEDS: SODIUM CHLORIDE 0.9% IV SCH (11:41)
[2024-01-19] MEDS: CUPRIC CHLORIDE IV SCH (11:41)
[2024-01-19] MEDS: Enoxaparin 40 MG/0.4 ML Syringe SUBCUT SCH (15:11)
[2024-01-20 04:11] LABS: HEMATOCRIT 25.9 % (34.3-46.0); HEMOGLOBIN 8.4 g/dL (11.2-15.5); MEAN CORPUSCULAR HEMOGLOBIN 32.9 pg (31.6-35.5); MEAN CORPUSCULAR HGB CONC 32.4 g/dL (31.6-35.5); MEAN CORPUSCULAR VOLUME 101.6 fL (81.4-99.0); RED BLOOD CELL COUNT 2.55 M/uL (3.77-5.24); WHITE BLOOD CELL COUNT,WBC 4.9 K/uL (3.2-11.0)
[2024-01-20 04:31] LABS: CALCIUM 7.9 mg/dL (8.5-10.1); CREATININE 0.4 mg/dL (0.6-1.0); EST CRCL DRUG DOSING (CG) 150.14 mL/min; MAGNESIUM 2.2 mg/dL (1.8-2.4); PHOSPHORUS 4.4 mg/dL (2.5-4.9); POTASSIUM,K 3.7 mmol/L (3.6-5.2)
[2024-01-20 04:32] LABS: ANION GAP 9.7 mmol/L (5.0-14.0)
[2024-01-20] MEDS ORDERED: Central Total Parenteral Nutrition Bag SCH (08:00)
[2024-01-20] MEDS: Ondansetron 4 MG Tab.DIS PO PRN (12:03)
[2024-01-20] MEDS ORDERED: 1: AA 5%/Calcium/D15W/Lytes 1,000 ML with MVI, Adult with Vitamin K 10 ML, Zinc/Copper/M IV SCH (16:45)
[2024-01-20] MEDS: 1: AA 5%/Calcium/D15W/Lytes 1,000 ML with MVI, Adult with Vitamin K 10 ML, Zinc/Copper/M IV SCH (18:17)
[2024-01-20] MEDS: Diazepam 2 MG Tab PO PRN (21:03)
[2024-01-20] MEDS ORDERED: Melatonin 3 MG Tab PO PRN (22:00)
[2024-01-21 01:26] LABS: TISSUE TRANSGLUTAMINAS TTG,IGA 2.07 FLU (0.00-4.99); TISSUE TRANSGLUTAMINASE AB,IGG 2.05 FLU (0.00-4.99)
[2024-01-21 05:24] LABS: HEMATOCRIT 27.9 % (34.3-46.0); HEMOGLOBIN 9.1 g/dL (11.2-15.5); MEAN CORPUSCULAR HEMOGLOBIN 33.2 pg (31.6-35.5); MEAN CORPUSCULAR HGB CONC 32.6 g/dL (31.6-35.5); MEAN CORPUSCULAR VOLUME 101.8 fL (81.4-99.0); RED BLOOD CELL COUNT 2.74 M/uL (3.77-5.24); WHITE BLOOD CELL COUNT,WBC 5.8 K/uL (3.2-11.0)
[2024-01-21 05:46] LABS: CALCIUM 8.3 mg/dL (8.5-10.1); CREATININE 0.4 mg/dL (0.6-1.0); EST CRCL DRUG DOSING (CG) 148.28 mL/min; MAGNESIUM 2.2 mg/dL (1.8-2.4); PHOSPHORUS 4.2 mg/dL (2.5-4.9); POTASSIUM,K 3.9 mmol/L (3.6-5.2)
[2024-01-21 06:11] LABS: ANION GAP 12.9 mmol/L (5.0-14.0)
[2024-01-21] MEDS ORDERED: Central Total Parenteral Nutrition Bag SCH (08:15)
[2024-01-21] MEDS ORDERED: 1: AA 5%/Calcium/D15W/Lytes 1,000 ML with MVI, Adult with Vitamin K 10 ML, Zinc/Copper/M IV SCH (10:00)
[2024-01-21] MEDS: Prochlorperazine 10 MG Tab PO PRN (15:48)
[2024-01-21] MEDS: Sertraline 25 MG Tab PO SCH (20:35)
[2024-01-22 04:16] LABS: HEMATOCRIT 27.5 % (34.3-46.0); MEAN CORPUSCULAR HEMOGLOBIN 33.1 pg (31.6-35.5); MEAN CORPUSCULAR HGB CONC 32.7 g/dL (31.6-35.5); MEAN CORPUSCULAR VOLUME 101.1 fL (81.4-99.0); RED BLOOD CELL COUNT 2.72 M/uL (3.77-5.24); WHITE BLOOD CELL COUNT,WBC 5.1 K/uL (3.2-11.0)
[2024-01-22 04:40] LABS: ALANINE AMINOTRANSFERASE,ALT 69 U/L (12-78); ALBUMIN 2.8 g/dL (3.4-5.0); ALKALINE PHOSPHATASE 101 U/L (46-116); ANION GAP 12.7 mmol/L (5.0-14.0); ASPARTATE AMNIOTRANSFERASE,AST 62 U/L (15-37); BILIRUBIN TOTAL 0.3 mg/dL (0.2-1.0); BLOOD UREA NITROGEN,BUN 13 mg/dL (7-18); CALCIUM 8.5 mg/dL (8.5-10.1); CARBON DIOXIDE,CO2 27 mmol/L (21-32); CHLORIDE,CL 109 mmol/L (100-108); CREATININE 0.4 mg/dL (0.6-1.0); EST CRCL DRUG DOSING (CG) 148.28 mL/min; ESTIMATED GFR 123 mL/min (>60); GLUCOSE RANDOM 86 mg/dL (74-106); MAGNESIUM 1.7 mg/dL (1.8-2.4); PHOSPHORUS 4.5 mg/dL (2.5-4.9); POTASSIUM,K 3.7 mmol/L (3.6-5.2); PROTEIN TOTAL,TP 5.7 g/dL (6.4-8.2); SODIUM,NA 145 mmol/L (140-148)
[2024-01-22 05:05] VITALS: BP 108/71; PULSE 82
[2024-01-22] MEDS: Magnesium Sulfate/Water 2 GM in Premix Bag 1 BAG IV SCH (08:24)
[2024-01-22] MEDS: Magnesium Oxide 400 MG Tab PO SCH (08:47)
[2024-01-22] MEDS ORDERED: 1: AA 5%/Calcium/D15W/Lytes 1,000 ML with MVI, Adult with Vitamin K 10 ML, Zinc/Copper/M IV SCH (10:00)
== END 2024-01-22 09:10 | disposition home or self-care (01) | DRG 421 ==
LOC: OBSVTOIN 16:12 → JP.MS 16:12
PROVIDERS: ADMIT Physician Assistant Medical; ATTEND Student in an Organized Health Care Education/Training Program
PROC: 30243N1 Transfusion of Nonautologous Red Blood Cells into Central Vein, Percutaneous Approach (ICD-10-PCS; principal; 2024-01-13)
PROC: 3E0436Z Introduction of Nutritional Substance into Central Vein, Percutaneous Approach (ICD-10-PCS; 2024-01-17)
DX: E43 Unspecified severe protein-calorie malnutrition (principal); T82.868A Thrombosis due to vascular prosthetic devices, implants and grafts, initial encounter; E88.09 Other disorders of plasma-protein metabolism, not elsewhere classified; I82.612 Acute embolism and thrombosis of superficial veins of left upper extremity; R62.7 Adult failure to thrive; E50.9 Vitamin A deficiency, unspecified; E55.9 Vitamin D deficiency, unspecified; E53.8 Deficiency of other specified B group vitamins; F41.1 Generalized anxiety disorder; F31.9 Bipolar disorder, unspecified; G47.00 Insomnia, unspecified; K21.9 Gastro-esophageal reflux disease without esophagitis; D53.9 Nutritional anemia, unspecified; E87.6 Hypokalemia; G89.29 Other chronic pain; R07.81 Pleurodynia; Z88.5 Allergy status to narcotic agent; Z88.1 Allergy status to other antibiotic agents; Z88.8 Allergy status to other drugs, medicaments and biological substances; Z68.20 Body mass index [BMI] 20.0-20.9, adult; Z98.84 Bariatric surgery status; Z90.49 Acquired absence of other specified parts of digestive tract; Z98.51 Tubal ligation status; Z79.899 Other long term (current) drug therapy; Z90.710 Acquired absence of both cervix and uterus; Z98.890 Other specified postprocedural states
CPT/HCPCS: 0241U; 36415; 36430; 36569; 80048; 80053; 80305-QW; 81001; 82180; 82306; 82525; 82607; 82728; 82746; 82947; 83036; 83550; 83735; 84100; 84134; 84446; 84478; 84590; 84597; 84630; 85018; 85025; 85027; 85610; 86364; 86850; 86900; 86901; 86920; 86922; 87040; 87046; 87077; 87086; 87186; 87899; 93971-LT; 97110-GO; 97110-GP; 97161-GP; 97165-GO; 97530-GP; A9270-GY; C1751; J0780; J1650; J2250; J2405; J2704; J3010; J3370; J3411; J3475; J3480; J3490; J7030; J7050; J7120; J7121; P9016; P9047; Q0162; Q0164